=== PATIENT | female | born 1960 | race Hispanic/Latino ===

== ENCOUNTER 2019-09-24 15:58 | Emergency (ER) | payer OTHER ==
[~2019-09-24] VITALS: Ht 152.4 cm; Wt 63.5 kg
--- OUTSIDE RECORDS SUMMARY | 2019-09-24 16:04 | XMS REPORT ---
Author Author [facility] Address Unknown Phone Unavailable Care Team Providers Care Dot Compliance Manager Name Role Phone Unavailable Unavailable Payers Payer Name Policy Type Policy Number Effective Date Expiration Date Problems This patient has no known problems. Allergies, Adverse Reactions, Alerts Allergy Name Allergy Type Status Severity Reaction(s) Onset Date Inactive Date Treating Clinician Comments ibuprofen DA Active U 2019-08-18 00:00:00 vancomycin DA Active SV 2019-08-18 00:00:00 meropenem DA Active MO 2019-08-18 00:00:00 levofloxacin DA Active MO 2019-08-18 00:00:00 shellfish derived FA Active MO 2019-08-18 00:00:00 ibuprofen DA Active SV 2019-01-30 00:00:00 shellfish derived DA Active MO 2019-01-30 00:00:00 ibuprofen DA Active SV 2019-01-29 00:00:00 shellfish derived DA Active SV 2019-01-29 00:00:00 ibuprofen DA Active U 2014-04-22 00:00:00 vancomycin DA Active SV 2014-04-22 00:00:00 meropenem DA Active MO 2014-04-22 00:00:00 levofloxacin DA Active MO 2014-04-22 00:00:00 shellfish derived FA Active MO 2014-04-22 00:00:00 Medications This patient has no known medications. Encounters Start Date/Time End Date/Time Encounter Type Admission Type Attending Clinicians Care Facility Care Department Encounter ID 2019-07-26 11:01:25 Outpatient [facility] [id number] 2019-05-16 14:31:59 Outpatient [facility] [id number] 2019-01-21 12:45:00 2019-01-21 12:45:00 Outpatient [facility] [id number] Results Test Description Test Time Test Comments Text Results Atomic Results Result Comments CBC W/AUTO DIFF 2019-08-19 08:29:00 WHITE BLOOD CELL (test code=WBC) 11.59 x10 3/uL 4.5-11.0 RED BLOOD CELL (test code=RBC) 3.51 x10 6/uL 3.54-5.02 HEMOGLOBIN (test code=HGB) 11.5 g/dL 11.0-15.0 HEMATOCRIT (test code=HCT) 34.5 % 33.0-45.0 MEAN CELL VOLUME (test code=MCV) 98.3 fL 81.0-99.0 MEAN CELL HGB (test code=MCH) 32.8 pg 27.0-33.0 MEAN CELL HGB CONCETRATION (test code=MCHC) 33.3 g/dL 33.0-37.0 RED CELL DISTRIBUTION WIDTH CV (test code=RDW) 12.4 % 11.5-14.5 RED CELL DISTRIBUTION WIDTH SD (test code=RDW-SD) 44.8 fL 37.0-54.0 PLATELET COUNT (test code=PLT) 160 x10 3/uL 150-400 MEAN PLATELET VOLUME (test code=MPV) 11.0 fL 7.0-9.0 NEUTROPHIL % (test code=NT%) 75.7 % 56.0-77.0 IMMATURE GRANULOCYTE % (test code=IG%) 0.5 % 0.0-2.0 LYMPHOCYTE % (test code=LY%) 12.4 % 14.0-32.0 MONOCYTE % (test code=MO%) 11.0 % 4.8-9.0 EOSINOPHIL % (test code=EO%) 0.1 % 0.3-3.7 BASOPHIL % (test code=BA%) 0.3 % 0.0-2.0 NUCLEATED RBC % (test code=NRBC%) 0.0 % 0-0 NEUTROPHIL # (test code=NT#) 8.77 x10 3/uL 2.0-7.6 IMMATURE GRANULOCYTE # (test code=IG#) 0.06 x10 3/uL 0.00-0.03 LYMPHOCYTE # (test code=LY#) 1.44 x10 3/uL 1.0-3.8 MONOCYTE # (test code=MO#) 1.28 x10 3/uL 0.1-0.8 EOSINOPHIL # (test code=EO#) 0.01 x10 3/uL 0.0-0.2 BASOPHIL # (test code=BA#) 0.03 x10 3/uL 0.0-0.2 NUCLEATED RBC # (test code=NRBC#) 0.00 x10 3/uL 0.0-0.1 MANUAL DIFF REQUIRED (test code=MDIFF) NO BASIC METABOLIC [id number] 07:38:00* Test Item Value Reference Range Comments SODIUM (test code=NA) 134 mEq/L 134-147 POTASSIUM (test code=K) 4.6 mEq/L 3.4-5.0 CHLORIDE (test code=CL) 106 mEq/L 100-108 CARBON DIOXIDE (test code=CO2) 21 mEq/L 21-33 ANION GAP (test code=GAP) 12 0-20 GLUCOSE (test code=GLU) 87 mg/dL 70-110 BLOOD UREA NITROGEN (test code=BUN) 12 mg/dL 7-18 GLOMERULAR FILTRATION RATE (test code=GFR) 72.9 80-90 Units of measure=ml/min/1.73 m2 CREATININE (test code=CREAT) 0.8 mg/dL 0.6-1.3 CALCIUM (test code=CA) 7.6 mg/dL 8.0-10.5 PROCALCITONIN (PCT)2019-08-18 14:45:00* Test Item Value Reference Range Comments PROCALCITONIN (PCT) (test code=PROCAL) 0.40 ng/mL 0.00-0.05 PROCALCITONIN (PCT) NORMAL RANGE (ADULT): <0.05 NG/ML. * a concentration <0.5 ng/mL represents a low risk of severe sepsis and/or septic shock.* a concentration >2 ng/mL represents a high risk of severe sepsis and/or septic shock.Nevertheless, concentrations <0.5 ng/mL do not exclude aninfection, on account of localized infections (withoutsystemic signs) which can be associated with such lowconcentrations, or a systemic infection in its initialstages (< 6 hours). Furthermore, increased procalcitonincan occur without infection. PCT concentrations between 0.5and 2.0 ng/mL should be interpreted taking into account thepatient's history. It is recommended to retest PCT within6-24 hours if any concentrations <2 ng/mL are obtained. - XR CHEST 1 [id number] 11:47:00 FAX: Cheri Ojeda DO [place]: St: ADM FAX: Mellissa Story MD [phone] Name: VINI MARIA [facility] : 1960 Age/S: 59/F [address] [place] [address] Unit #: [id number] Loc: [place] [address] Phys: Cheri Ojeda DO Acct: [id number] Dis Date: Status: ADM IN PHONE #: [phone] Exam Date: 08/18/2019 1057 FAX #: [phone] Reason: fever EXAMS: CPT CODE: [id number] XR CHEST 1 V 60252 CHEST, ONE VIEW: HISTORY: Acute fever COMPARISON EXAM(S): January 2019 FINDINGS: This single portable view was obtained at 1028 hours on 08/18/2019 and shows the cardiac silhouette to be normal and the lungs clear. No pleural fluid or evidence of pneumothorax. The skeletal structures are unremarkable. Postoperative clips present in the upper abdomen. IMPRESSION: 1. Negative examination of the chest. 2. No change compared to January 2019. SL:01 at 1147 Reported and signed by: Jhonathan Puckett M.D. CC: Cheri Ojeda DO; Mellissa Story MD Technologist: RT Gallito(R) Trnscrd Date/Time/By: 08/18/2019 (9133) : By: Alfonso Orig Print D/T: S: 08/18/2019 (9407) PAGE 1 Signed Report - CT ABD PELVIS W/CONT 2019-08-18 11:05:00 Name: VINI MARIA : 1960 Age/S: 59 / F [address] [facility] Unit #: [id number] Loc: [place] [address] Phys: Cheri Ojeda DO Acct: [id number] Dis Date: Status: REG ER PHONE #: [phone] Exam Date: 08/18/2019 1044 FAX #: [phone] Reason: fever, right flank pain EXAMS: CPT CODE: [id number] CT ABD PELVIS W/CONT 22496 PROCEDURE: CT ABDOMEN AND PELVIS WITH CONTRAST INDICATION: Right flank pain, fever COMPARISON: None. TECHNIQUE: Helical imaging was performed diaphragm through the symphysis with multiplanar reconstructions. CT imaging performed at this location utilizes radiation dose optimization techniques which include one or more of the following: -Automated exposure control -Adjustment of the mA and/or kV according to patient size -Use of iterative reconstruction technique CT Radiation Dose DLP 214.79 mGy-cm IV CONTRAST: 100 mL Isovue-300. GI CONTRAST: 10 mL Gastrografin diluted in water. FINDINGS: LOWER CHEST: The lung bases are clear. LIVER: Normal. GALLBLADDER: Normal. SPLEEN: Normal. PANCREAS: Normal. ADRENALS: Normal. KIDNEYS: Left kidney is surgically absent. There is mild right hydronephrosis. Small area of decreased density in the mid right kidney is noted. Small area of decreased density within the inferior right kidney is noted. There is enhancement of the right ureteral wall. BOWEL: No bowel dilatation is present. There is moderate stool throughout the colon. APPENDIX: Not visualized PERITONEUM: Ileostomy is noted. No free air or fluid collection is noted. RETROPERITONEUM: No adenopathy. The aorta is normal caliber and PAGE 1 Signed Report (CONTINUED) Name: VINI MARIA [facility] Lurdes Patel : [birth year] Age/S: 59 / F [address] [place] [address] Unit #: [id number] Loc: [place] [address] Phys: Cheri Ojeda DO Acct: [id number] Dis Date: Status: REG ER PHONE #: [phone] Exam Date: 08/18/2019 1044 FAX #: [phone] Reason: fever, right flank pain EXAMS: CPT CODE: [id number] CT ABD PELVIS W/CONT 64360 <Continued> contains calcifications. PELVIS: Urinary bladder is surgically absent. Surgical clips in the pelvic orantes indicate previous lymph node dissection. MUSCULOSKELETAL: The skeleton is intact. Previous posterior decompression at L4-5 is noted. Vertebral body fusion at L2-3 is unchanged. Old vertebral body compression fracture at T12 is unc hanged. IMPRESSION: 1. Small areas of decreased density in mid and inferior right kidney suggestive of mild pyelonephritis. 2. Mild right hydroureteronephrosis, unchanged. 3. Enhancement of right ureteral wall suggestive of urinary tract infection. 4. Nonvisualization of appendix. 5. Previous resection of urinary bladder with ileostomy. 6. Absent left kidney. SL: [id number] G06 at 1105 R eported and signed by: Myles Hopkins M.D. CC: Cheri Story MD Technologist:Kim Montoya RT(R)(CT) CTDI: DLP: Trnscb Date/Time: 08/18/2019 (0835) [email or web address] Orig Print D/T: S: 08/18/2019 (1166) PAGE 2 Signed Report HEPATIC FUNCTION PANEL 2019-08-18 10:34:00* Test Item Value Reference Range Comments TOTAL PROTEIN (test code=PROT) 8.1 g/dL 6.4-8.2 ALBUMIN (test code=ALB) 4.00 g/dL 3.4-5.0 BILIRUBIN TOTAL (test code=BILT) 1.4 MG/DL <1.5 BILIRUBIN DIRECT (test code=BILD) 0.30 MG/DL 0.0-0.30 BILIRUBIN INDIRECT (test code=BILIND) 1.10 MG/DL SGOT/AST (test code=AST) 30 IUnit/L 15-37 SGPT/ALT (test code=ALT) 47 IUnit/L 15-65 ALKALINE PHOSPHATASE TOTAL (test code=ALKP) 69 IUnit/L 20-125 PROTHROMBIN [id number] 10:34:00* Test Item Value Reference Range Comments PROTHROMBIN TIME PATIENT (test code=PTP) 12.9 SECONDS 9.3-12.9 INTERNATIONAL NORMAL RATIO (test code=INR) 1.2 0.8-1.2 TARGET INR BY INDICATION Indication INR1. Prophylaxis of venous thrombosis 2.0 - 3.0 (orthopedic surgery), Prophylaxis of venous thrombosis (other than high-risk surgery), Treatment of Deep Vein Thrombosis/Pulmonary Embolism, Prevention of systemic embolism - Tissue heart valves, Acute Myocardial Infarction (to prevent systemic embolism), Valvular heart disease, Atrial Fibrillation, Bileaflet mechanical valve in aortic position.2. Mechanical prosthetic valves (high risk), 2.5 - 3.5 Presence of Lupus Anticoagulant or Antiphospholipid Antibodies, Prevention of systemic embolism - Acute Myocardial Infarction (to prevent recurrent infarct). THROMBOPLASTIN TIME [id number] 10:34:00* Test Item Value Reference Range Comments THROMBOPLASTIN TIME PARTIAL (test code=PTT) 48.9 Seconds 25.0-39.5 Therapeutic Range: 50.4 - 88.3 Seconds Effective 02/12/2019 UA RFLX MICR CULT IF [id number] 10:32:00* Test Item Value Reference Range Comments UA COLOR (test code=COLU) YELLOW YEL/STRAW UA APPEARANCE (test code=APPU) CLOUDY CLEAR UA GLUCOSE DIPSTICK (test code=DGLUU) NEGATIVE NEGATIVE UA BILIRUBIN DIPSTICK (test code=BILU) NEGATIVE NEGATIVE UA KETONE DIPSTICK (test code=KETU) 1+ NEGATIVE UA SPECIFIC GRAVITY (test code=SGU) 1.009 1.005-1.030 UA BLOOD DIPSTICK (test code=CARLI) 2+ NEGATIVE UA PH DIPSTICK (test code=JAG) 5.0 5.0-7.0 UA PROTEIN DIPSTICK (test code=PROU) NEGATIVE NEGATIVE UA UROBILINIOGEN DIPSTICK (test code=URO) 0.2 mg/dL 0.2-1.0 UA NITRITE DIPSTICK (test code=JESUS) POSITIVE NEGATIVE UA LEUKOCYTE ESTERASE DIPSTICK (test code=LEUU) 3+ NEGATIVE UA WBC (test code=WBCU) >50 WBC/HPF 0-3 UA RBC (test code=RBCU) 11-20 RBC/HPF 0-3 UA WBC NO REFLEX (test code=WBCUCL) >50 WBC/HPF 0-3 UA BACTERIA (test code=BACU) 4+ /HPF NONE SEEN UA SQUAMOUS CELLS (test code=SQU) NONE SEEN /HPF NONE SEEN UA MUCUS (test code=MUCU) TRACE /LPF NONE SEEN Indication for culture: Sev. Sepsis-no other srcSpecimen Description: STOMA HEPATIC FUNCTION [id number] 10:31:00* Test Item Value Reference Range Comments TOTAL PROTEIN (test code=PROT) 8.1 g/dL 6.4-8.2 ALBUMIN (test code=ALB) 4.00 g/dL 3.4-5.0 BILIRUBIN TOTAL (test code=BILT) MG/DL <1.5 BILIRUBIN DIRECT (test code=BILD) 0.30 MG/DL 0.0-0.30 SGOT/AST (test code=AST) 30 IUnit/L 15-37 SGPT/ALT (test code=ALT) 47 IUnit/L 15-65 ALKALINE PHOSPHATASE TOTAL (test code=ALKP) IUnit/L 20-125 CBC W/AUTO [id number] 10:20:00* Test Item Value Reference Range Comments WHITE BLOOD CELL (test code=WBC) 11.94 x10 3/uL 4.5-11.0 RED BLOOD CELL (test code=RBC) 4.11 x10 6/uL 3.54-5.02 HEMOGLOBIN (test code=HGB) 13.6 g/dL 11.0-15.0 HEMATOCRIT (test code=HCT) 40.1 % 33.0-45.0 MEAN CELL VOLUME (test code=MCV) 97.6 fL 81.0-99.0 MEAN CELL HGB (test code=MCH) 33.1 pg 27.0-33.0 MEAN CELL HGB CONCETRATION (test code=MCHC) 33.9 g/dL 33.0-37.0 RED CELL DISTRIBUTION WIDTH CV (test code=RDW) 12.3 % 11.5-14.5 RED CELL DISTRIBUTION WIDTH SD (test code=RDW-SD) 44.2 fL 37.0-54.0 PLATELET COUNT (test code=PLT) 186 x10 3/uL 150-400 MEAN PLATELET VOLUME (test code=MPV) 10.2 fL 7.0-9.0 NEUTROPHIL % (test code=NT%) 85.7 % 56.0-77.0 IMMATURE GRANULOCYTE % (test code=IG%) 0.5 % 0.0-2.0 LYMPHOCYTE % (test code=LY%) 6.1 % 14.0-32.0 MONOCYTE % (test code=MO%) 6.9 % 4.8-9.0 EOSINOPHIL % (test code=EO%) 0.3 % 0.3-3.7 BASOPHIL % (test code=BA%) 0.5 % 0.0-2.0 NUCLEATED RBC % (test code=NRBC%) 0.0 % 0-0 NEUTROPHIL # (test code=NT#) 10.24 x10 3/uL 2.0-7.6 IMMATURE GRANULOCYTE # (test code=IG#) 0.06 x10 3/uL 0.00-0.03 LYMPHOCYTE # (test code=LY#) 0.73 x10 3/uL 1.0-3.8 MONOCYTE # (test code=MO#) 0.82 x10 3/uL 0.1-0.8 EOSINOPHIL # (test code=EO#) 0.03 x10 3/uL 0.0-0.2 BASOPHIL # (test code=BA#) 0.06 x10 3/uL 0.0-0.2 NUCLEATED RBC # (test code=NRBC#) 0.00 x10 3/uL 0.0-0.1 MANUAL DIFF REQUIRED (test code=MDIFF) NO TROPONIN-I [id number] 10:18:00* Test Item Value Reference Range Comments TROPONIN-I RAPID (test code=TROPIRAP) 0.06 ng/mL 0.00-0.08 Performed by certified dicer machine operator at [facility] Negative: <=0.08 Positive: >=0.09An elevated troponin value alone is not sufficient todiagnose a myocardial infarction. Rather, the patient sclinical presentation (history, physical exam) and ECGshould be used in conjunction with troponin in thediagnostic evaluation of suspected myocardial infarction. Aserial sampling protocol is recommended to facilitate the identification of temporal changes in troponin levels characteristic of HI. CHEMISTRY 8 [id number] 10:05:00* Test Item Value Reference Range Comments ISTAT-SODIUM (test code=NAP) MMOL/L 134-147 ISTAT-POTASSIUM (test code=KP) MMOL/L 3.4-5.0 ISTAT-CHLORIDE (test code=CLP) MMOL/L 100-108 ISTAT CARBON DIOXIDE (test code=ISTAT-CO2) mmol/L 21-33 ISTAT CALCIUM IONIZED (test code=ISTAT-MICHAEL) MG/DL 1.12-1.32 ISTAT-GLUCOSE (test code=GLUP) MG/DL 70-110 ISTAT-BUN (test code=BUNP) MG/DL 7-18 BEDSIDE CREATININE (test code=CREATBED) MG/DL 0.6-1.3 GLOMERULAR FILTRATION RATE POC (test code=GFRBED) 60 ML/MIN CHEMISTRY 8 [id number] 10:05:00* Test Item Value Reference Range Comments ISTAT-SODIUM (test code=NAP) 135 MMOL/L 134-147 ISTAT-POTASSIUM (test code=KP) 4.2 MMOL/L 3.4-5.0 ISTAT-CHLORIDE (test code=CLP) 99 MMOL/L 100-108 Performed by certified dicer machine operator at [facility] ISTAT CARBON DIOXIDE (test code=ISTAT-CO2) 23.0 mmol/L 21-33 ISTAT CALCIUM IONIZED (test code=ISTAT-MICHAEL) 1.14 MG/DL 1.12-1.32 ISTAT-GLUCOSE (test code=GLUP) 92 MG/DL 70-110 ISTAT-BUN (test code=BUNP) 16 MG/DL 7-18 BEDSIDE CREATININE (test code=CREATBED) 1.0 MG/DL 0.6-1.3 GLOMERULAR FILTRATION RATE POC (test code=GFRBED) 60 ML/MIN LACTIC ACID [id number] 10:05:00* Test Item Value Reference Range Comments LACTIC ACID POC (test code=LACTP) 0.7 MMOL/L 0.90-1.70 Performed by certified dicer machine operator at [facility] CBC W/AUTO [id number] 08:08:00* Test Item Value Reference Range Comments WHITE BLOOD CELL (test code=WBC) 4.47 x10 3/uL 4.5-11.0 RED BLOOD CELL (test code=RBC) 3.93 x10 6/uL 3.54-5.02 HEMOGLOBIN (test code=HGB) 12.7 g/dL 11.0-15.0 HEMATOCRIT (test code=HCT) 36.9 % 33.0-45.0 MEAN CELL VOLUME (test code=MCV) 93.9 fL 81.0-99.0 MEAN CELL HGB (test code=MCH) 32.3 pg 27.0-33.0 MEAN CELL HGB CONCETRATION (test code=MCHC) 34.4 g/dL 33.0-37.0 RED CELL DISTRIBUTION WIDTH CV (test code=RDW) 11.9 % 11.5-14.5 RED CELL DISTRIBUTION WIDTH SD (test code=RDW-SD) 41.2 fL 37.0-54.0 PLATELET COUNT (test code=PLT) 175 x10 3/uL 150-400 MEAN PLATELET VOLUME (test code=MPV) 10.2 fL 7.0-9.0 NEUTROPHIL % (test code=NT%) 54.9 % 56.0-77.0 IMMATURE GRANULOCYTE % (test code=IG%) 0.2 % 0.0-2.0 LYMPHOCYTE % (test code=LY%) 27.7 % 14.0-32.0 MONOCYTE % (test code=MO%) 9.6 % 4.8-9.0 EOSINOPHIL % (test code=EO%) 6.5 % 0.3-3.7 BASOPHIL % (test code=BA%) 1.1 % 0.0-2.0 NUCLEATED RBC % (test code=NRBC%) 0.0 % 0-0 NEUTROPHIL # (test code=NT#) 2.45 x10 3/uL 2.0-7.6 IMMATURE GRANULOCYTE # (test code=IG#) 0.01 x10 3/uL 0.00-0.03 LYMPHOCYTE # (test code=LY#) 1.24 x10 3/uL 1.0-3.8 MONOCYTE # (test code=MO#) 0.43 x10 3/uL 0.1-0.8 EOSINOPHIL # (test code=EO#) 0.29 x10 3/uL 0.0-0.2 BASOPHIL # (test code=BA#) 0.05 x10 3/uL 0.0-0.2 NUCLEATED RBC # (test code=NRBC#) 0.00 x10 3/uL 0.0-0.1 MANUAL DIFF REQUIRED (test code=MDIFF) NO BASIC METABOLIC [id number] 08:05:00* Test Item Value Reference Range Comments SODIUM (test code=NA) 141 mEq/L 134-147 POTASSIUM (test code=K) 3.9 mEq/L 3.4-5.0 CHLORIDE (test code=CL) 110 mEq/L 100-108 CARBON DIOXIDE (test code=CO2) 23 mEq/L 21-33 ANION GAP (test code=GAP) 12 0-20 GLUCOSE (test code=GLU) 98 mg/dL 70-110 BLOOD UREA NITROGEN (test code=BUN) 12 mg/dL 7-18 GLOMERULAR FILTRATION RATE (test code=GFR) 73.2 80-90 Units of measure=ml/min/1.73 m2 CREATININE (test code=CREAT) 0.8 mg/dL 0.6-1.3 CALCIUM (test code=CA) 8.4 mg/dL 8.0-10.5 BASIC METABOLIC [id number] 08:18:00* Test Item Value Reference Range Comments SODIUM (test code=NA) 141 mEq/L 134-147 POTASSIUM (test code=K) 3.8 mEq/L 3.4-5.0 CHLORIDE (test code=CL) 110 mEq/L 100-108 CARBON DIOXIDE (test code=CO2) 25 mEq/L 21-33 ANION GAP (test code=GAP) 10 0-20 GLUCOSE (test code=GLU) 82 mg/dL 70-110 BLOOD UREA NITROGEN (test code=BUN) 7 mg/dL 7-18 GLOMERULAR FILTRATION RATE (test code=GFR) 73.2 80-90 Units of measure=ml/min/1.73 m2 CREATININE (test code=CREAT) 0.8 mg/dL 0.6-1.3 CALCIUM (test code=CA) 8.3 mg/dL 8.0-10.5 CBC W/AUTO [id number] 08:01:00* Test Item Value Reference Range Comments WHITE BLOOD CELL (test code=WBC) 3.96 x10 3/uL 4.5-11.0 RED BLOOD CELL (test code=RBC) 4.19 x10 6/uL 3.54-5.02 HEMOGLOBIN (test code=HGB) 13.4 g/dL 11.0-15.0 HEMATOCRIT (test code=HCT) 39.6 % 33.0-45.0 MEAN CELL VOLUME (test code=MCV) 94.5 fL 81.0-99.0 MEAN CELL HGB (test code=MCH) 32.0 pg 27.0-33.0 MEAN CELL HGB CONCETRATION (test code=MCHC) 33.8 g/dL 33.0-37.0 RED CELL DISTRIBUTION WIDTH CV (test code=RDW) 12.0 % 11.5-14.5 RED CELL DISTRIBUTION WIDTH SD (test code=RDW-SD) 42.0 fL 37.0-54.0 PLATELET COUNT (test code=PLT) 189 x10 3/uL 150-400 MEAN PLATELET VOLUME (test code=MPV) 10.6 fL 7.0-9.0 NEUTROPHIL % (test code=NT%) 39.9 % 56.0-77.0 IMMATURE GRANULOCYTE % (test code=IG%) 0.3 % 0.0-2.0 LYMPHOCYTE % (test code=LY%) 44.2 % 14.0-32.0 MONOCYTE % (test code=MO%) 8.8 % 4.8-9.0 EOSINOPHIL % (test code=EO%) 5.8 % 0.3-3.7 BASOPHIL % (test code=BA%) 1.0 % 0.0-2.0 NUCLEATED RBC % (test code=NRBC%) 0.0 % 0-0 NEUTROPHIL # (test code=NT#) 1.58 x10 3/uL 2.0-7.6 IMMATURE GRANULOCYTE # (test code=IG#) 0.01 x10 3/uL 0.00-0.03 LYMPHOCYTE # (test code=LY#) 1.75 x10 3/uL 1.0-3.8 MONOCYTE # (test code=MO#) 0.35 x10 3/uL 0.1-0.8 EOSINOPHIL # (test code=EO#) 0.23 x10 3/uL 0.0-0.2 BASOPHIL # (test code=BA#) 0.04 x10 3/uL 0.0-0.2 NUCLEATED RBC # (test code=NRBC#) 0.00 x10 3/uL 0.0-0.1 MANUAL DIFF REQUIRED (test code=MDIFF) NO CBC W/AUTO [id number] 08:01:00* Test Item Value Reference Range Comments WHITE BLOOD CELL (test code=WBC) 4.38 x10 3/uL 4.5-11.0 RED BLOOD CELL (test code=RBC) 4.21 x10 6/uL 3.54-5.02 HEMOGLOBIN (test code=HGB) 13.7 g/dL 11.0-15.0 HEMATOCRIT (test code=HCT) 40.0 % 33.0-45.0 MEAN CELL VOLUME (test code=MCV) 95.0 fL 81.0-99.0 MEAN CELL HGB (test code=MCH) 32.5 pg 27.0-33.0 MEAN CELL HGB CONCETRATION (test code=MCHC) 34.3 g/dL 33.0-37.0 RED CELL DISTRIBUTION WIDTH CV (test code=RDW) 12.1 % 11.5-14.5 RED CELL DISTRIBUTION WIDTH SD (test code=RDW-SD) 42.5 fL 37.0-54.0 PLATELET COUNT (test code=PLT) 184 x10 3/uL 150-400 MEAN PLATELET VOLUME (test code=MPV) 10.5 fL 7.0-9.0 NEUTROPHIL % (test code=NT%) 43.9 % 56.0-77.0 IMMATURE GRANULOCYTE % (test code=IG%) 0.2 % 0.0-2.0 LYMPHOCYTE % (test code=LY%) 39.7 % 14.0-32.0 MONOCYTE % (test code=MO%) 9.4 % 4.8-9.0 EOSINOPHIL % (test code=EO%) 5.7 % 0.3-3.7 BASOPHIL % (test code=BA%) 1.1 % 0.0-2.0 NUCLEATED RBC % (test code=NRBC%) 0.0 % 0-0 NEUTROPHIL # (test code=NT#) 1.92 x10 3/uL 2.0-7.6 IMMATURE GRANULOCYTE # (test code=IG#) 0.01 x10 3/uL 0.00-0.03 LYMPHOCYTE # (test code=LY#) 1.74 x10 3/uL 1.0-3.8 MONOCYTE # (test code=MO#) 0.41 x10 3/uL 0.1-0.8 EOSINOPHIL # (test code=EO#) 0.25 x10 3/uL 0.0-0.2 BASOPHIL # (test code=BA#) 0.05 x10 3/uL 0.0-0.2 NUCLEATED RBC # (test code=NRBC#) 0.00 x10 3/uL 0.0-0.1 MANUAL DIFF REQUIRED (test code=MDIFF) NO BASIC METABOLIC [id number] 07:27:00* Test Item Value Reference Range Comments SODIUM (test code=NA) 139 mEq/L 134-147 POTASSIUM (test code=K) 3.2 mEq/L 3.4-5.0 CHLORIDE (test code=CL) 104 mEq/L 100-108 CARBON DIOXIDE (test code=CO2) 28 mEq/L 21-33 ANION GAP (test code=GAP) 10 0-20 GLUCOSE (test code=GLU) 90 mg/dL 70-110 BLOOD UREA NITROGEN (test code=BUN) 10 mg/dL 7-18 GLOMERULAR FILTRATION RATE (test code=GFR) 56.6 80-90 Units of measure=ml/min/1.73 m2 CREATININE (test code=CREAT) 1.0 mg/dL 0.6-1.3 CALCIUM (test code=CA) 8.1 mg/dL 8.0-10.5 - NM RENAL FUNCT W/PHA [id number] 17:00:00 FAX: Vincent Carbajal MD [phone] [place]: St: DIS FAX: Black Vidal MD FAX: Mellissa Story MD [phone] Name: MARIAVINI RODRIGUEZ [facility] : 1960 Age/S: 58/F [address] [place] [address] Unit #: [id number] Loc: G.4418 [place] [address] Phys: Vincent Gilliam MD Acct: [id number] Dis Date: [id number] Status: DIS IN PH ONE #: [phone] Exam Date: 03/28/2019 1509 FAX #: [phone] Reason: HYDRO OF SOLITARY KIDNEY. CALCULATE POST LASIX EXAMS: CPT CODE: [id number] NM RENAL FUNCT W/[place] SGL [id number] NUCLEAR MAG3 R ENAL SCAN WITH LASIX: HISTORY: Hydronephrosis of solitary kidney. Cystectomy and left nephrectomy in 2013. Ureteral conduit in 2013. COMPARISON EXAM: Abdominal pelvic CT scan of 03/27/2019. T ECHNIQUE: Following the intravenous injection of 10 mCi 99m technetium MAG 3, immediate vascular flow imaging was performed in posterior projection o kevin the kidneys. Sequential images were obtained during localization and excretion phases. Following the intravenous injection of 40 mg IV Lasix, posterior images were obtained for an additional 20 minutes. Renogram cur ves were generated. FINDINGS: There was prompt initial local ization of isotope to the right renal parenchyma at the time of early pepito rial phase imaging. There was normal localization of isotope to the right renal parenchyma and pooling of isotope in moderately distended right romina al calyces and right renal pelvis out to 30 minutes. After i ntravenous Lasix, there was prompt washout of isotope activity from the ri ght kidney. Estimated total ERPF is 324 mL/m. Time to peak cortical acti vity is 3.1 minutes (normal less than 4 minutes). Diuretic T1/2=8.5 minut es. IMPRESSION: 1. Normal vascular flow and localizatio n phases of the right kidney. 2. High capacity collecting structures wi thout evidence of complete obstruction. 3. Diuretic T1/2=8.5 mi nutes. 4. Total estimated ERPF is 324 mL/m. SL:01 PAGE 1 Sign ed Report (CONTINUED) FAX: Vincent Carbajal MD [place]: St: DIS FAX: Black Vidal MD FAX: Mellissa Story MD [phone] Name: VINI MARIA [facility] : 1960 Age/S: 58/F [address] [facility] Unit #: [id number] Loc: [address] [place] [address] Phys: Vincent Gilliam MD Acct: [id number] Dis Date: [id number] Status: DIS IN PHONE #: [phone] Exam Date: 03/28/2019 1509 FAX #: [phone] Reason: HYDRO OF S OLITARY KIDNEY. CALCULATE POST LASIX EXAMS: CPT CODE: [id number] NM RENAL FUNCT W/PHA SGL [id number] <Continued> at 1700 Reported and signed by: Jhonathan Puckett M.D. CC: Vincent Gilliam MD; Black Vidal MD; Mellissa Story MD Technologist: GELY Vargas (N); ... Trnderd Date/Time/By: 03/28/2019 (1700) : By: [facility] Orig Print D/T: S: 03/28/2019 (6594) PAGE 2 Signed Report - NM RENAL FUNCT W/PHA [id number] 17:00:00 FAX: Vincent Carbajal MD [phone] [place]: St: [facility] FAX: Black Vidal MD FAX: Mellissa Story MD [phone] Name: VINI MARIA [facility] [place] : 1960 Age/S: 58/F [address] [place] [address] Unit #: [id number] Loc: [place] [address] Phys: Vincent Gilliam MD Acct: [id number] Dis Date: Status: ADM IN PH ONE #: [phone] Exam Date: 03/28/2019 1509 FAX #: [phone] Reason: HYDRO OF SOLITARY KIDNEY. CALCULATE POST LASIX EXAMS: CPT CODE: [id number] NM RENAL FUNCT W/PHA SGL 27109 NUCLEAR MAG3 R ENAL SCAN WITH LASIX: HISTORY: Hydronephrosis of solitary kidney. Cystectomy and left nephrectomy in 2012. Ureteral conduit in 2012. COMPARISON EXAM: Abdominal pelvic CT scan of 03/27/2019. T ECHNIQUE: Following the intravenous injection of 10 mCi 99m technetium MAG 3, immediate vascular flow imaging was performed in posterior projection o kevin the kidneys. Sequential images were obtained during localization and excretion phases. Following the intravenous injection of 40 mg IV Lasix, posterior images were obtained for an additional 20 minutes. Renogram cur ves were generated. FINDINGS: There was prompt initial local ization of isotope to the right renal parenchyma at the time of early pepito rial phase imaging. There was normal localization of isotope to the right renal parenchyma and pooling of isotope in moderately distended right romina al calyces and right renal pelvis out to 30 minutes. After i ntravenous Lasix, there was prompt washout of isotope activity from the ri ght kidney. Estimated total ERPF is 324 mL/m. Time to peak cortical acti vity is 3.1 minutes (normal less than 4 minutes). Diuretic T1/2=8.5 minut es. IMPRESSION: 1. Normal vascular flow and localizatio n phases of the right kidney. 2. High capacity collecting structures wi thout evidence of complete obstruction. 3. Diuretic T1/2=8.5 mi nutes. 4. Total estimated ERPF is 324 mL/m. SL:01 PAGE 1 Sign ed Report (CONTINUED) FAX: Vincent Carbajal MD [place]: St: ADM FAX: Black Vidal MD FAX: Mellissa Story MD [phone] Name: VINI MARIA [facility] [place] : 1960 Age/S: 58/F [address] [place] [address] Unit #: [id number] Loc: [address] [place] [address] Phys: Vincent Gilliam MD Acct: [id number] Dis Date: Status: ADM IN PHONE #: [phone] Exam Date: 03/28/2019 1509 FAX #: [phone] Reason: HYDRO OF S OLITARY KIDNEY. CALCULATE POST LASIX EXAMS: CPT CODE: [id number] NM RENAL FUNCT W/PHA SGL 93290 <Continued> at 1700 Reported and signed by: Jhonathan Puckett M.D. CC: Vincent Gilliam MD; Black Vidal MD; Mellissa Story MD Technologist: GELY Vargas (N); ... Trnscrd Date/Time/By: 03/28/2019 (1700) : By: [facility] Orig Print D/T: S: 03/28/2019 (6020) PAGE 2 Signed Report - XR ABDOMEN 1V (KUB)2019-03-28 11:19:00 FAX: Taylor Manuel MD [phone] [place]: St: DIS FAX: Black Vidal MD FAX: Mellissa Story MD [phone] Name: VINI MARIA [facility] [place] : 1960 Age/S: 58/F [address] [place] [address] Unit #: [id number] Loc: [address] [place] [address] Phys: Taylor Harrell MD Acct: [id number] Dis Date: [id number] Status: DIS IN PH ONE #: [phone] Exam Date: 03/28/2019 1054 FAX #: [phone] Reason: FOLLOW UP OF sbo EXAMS: CPT CODE: [id number] XR ABDOMEN 1V (KUB) 00336 CLINICAL HISTO RY: Follow-up SBO. COMPARISON: March 27, 2019 at 1813. Fine film of the abdomen does not include diaphragms. Monitor leads are present. Surgical clips related to previous abdominal surgery are noted. Contrast material is seen in the colon from prior computed tomography. No evidence of small or large bowel obstruction is seen. Changes of prior laminectomy are present. IMPRESSION: No evidence of small bowel obstruction with contrast material seen in the colon from prior computed tomography. at 1119 Reported and signed by: Benji Anderson M.D. CC: Taylor Harrell MD; Black Vidal MD; Mellissa Story MD Technologist: RT Сергей(R) Trnscrd Akira e/Time/By: 03/28/2019 (1822) : By: Alvin Orig Print D/T: S: 2018 (0482) PAGE 1 Signed Report - XR ABDOMEN 1V (KUB)2019-03-28 11:19:00 FAX: Taylor Manuel MD [phone] [place]: St: ADM FAX: Black Vidal MD FAX: Mellissa Story MD --------- Name: VINI MARIA [facility] : 1960 Age/S: 58/F [address] [place] [address] it #: [id number] Loc: G.4418 [place] [address] Phys: Taylor Harrell MD Acct: [id number] Dis Date: Status: ADM IN PH ONE #: [phone] Exam Date: 03/28/2019 1054 FAX #: [phone] Reason: FOLLOW UP OF sbo EXAMS: CPT CODE: [id number] XR ABDOMEN 1V (KUB) 78544 CLINICAL HISTO RY: Follow-up SBO. COMPARISON: March 27, 2019 at 1813. Fine film of the abdomen does not include diaphragms. Monitor leads are present. Surgical clips related to previous abdominal surgery are noted. Contrast material is seen in the colon from prior computed tomography. No evidence of small or large bowel obstruction is seen. Changes of prior laminectomy are present. IMPRESSION: No evidence of small bowel obstruction with contrast material seen in the colon from prior computed tomography. at 1119 Reported and signed by: Benji Anderson M.D. CC: Taylor Harrell MD; Black Vidal MD; Mellissa Story MD Technologist: Rosa Maria YepezRT(R) Trnscrd Akira e/Time/By: 03/28/2019 (6737) : By: Alvin Orig Print D/T: S: 2018 (4033) PAGE 1 Signed Report CBC W/AUTO [id number] 09:38:00* Test Item Value Reference Range Comments WHITE BLOOD CELL (test code=WBC) 5.37 x10 3/uL 4.5-11.0 RED BLOOD CELL (test code=RBC) 3.89 x10 6/uL 3.54-5.02 HEMOGLOBIN (test code=HGB) 12.8 g/dL 11.0-15.0 HEMATOCRIT (test code=HCT) 37.9 % 33.0-45.0 MEAN CELL VOLUME (test code=MCV) 97.4 fL 81.0-99.0 MEAN CELL HGB (test code=MCH) 32.9 pg 27.0-33.0 MEAN CELL HGB CONCETRATION (test code=MCHC) 33.8 g/dL 33.0-37.0 RED CELL DISTRIBUTION WIDTH CV (test code=RDW) 12.6 % 11.5-14.5 RED CELL DISTRIBUTION WIDTH SD (test code=RDW-SD) 45.4 fL 37.0-54.0 PLATELET COUNT (test code=PLT) 170 x10 3/uL 150-400 MEAN PLATELET VOLUME (test code=MPV) 10.9 fL 7.0-9.0 NEUTROPHIL % (test code=NT%) 55.6 % 56.0-77.0 IMMATURE GRANULOCYTE % (test code=IG%) 0.2 % 0.0-2.0 LYMPHOCYTE % (test code=LY%) 29.1 % 14.0-32.0 MONOCYTE % (test code=MO%) 10.1 % 4.8-9.0 EOSINOPHIL % (test code=EO%) 4.1 % 0.3-3.7 BASOPHIL % (test code=BA%) 0.9 % 0.0-2.0 NUCLEATED RBC % (test code=NRBC%) 0.0 % 0-0 NEUTROPHIL # (test code=NT#) 2.99 x10 3/uL 2.0-7.6 IMMATURE GRANULOCYTE # (test code=IG#) 0.01 x10 3/uL 0.00-0.03 LYMPHOCYTE # (test code=LY#) 1.56 x10 3/uL 1.0-3.8 MONOCYTE # (test code=MO#) 0.54 x10 3/uL 0.1-0.8 EOSINOPHIL # (test code=EO#) 0.22 x10 3/uL 0.0-0.2 BASOPHIL # (test code=BA#) 0.05 x10 3/uL 0.0-0.2 NUCLEATED RBC # (test code=NRBC#) 0.00 x10 3/uL 0.0-0.1 MANUAL DIFF REQUIRED (test code=MDIFF) NO BASIC METABOLIC [id number] 08:14:00* Test Item Value Reference Range Comments SODIUM (test code=NA) 143 mEq/L 134-147 POTASSIUM (test code=K) 3.5 mEq/L 3.4-5.0 CHLORIDE (test code=CL) 112 mEq/L 100-108 CARBON DIOXIDE (test code=CO2) 23 mEq/L 21-33 ANION GAP (test code=GAP) 12 0-20 GLUCOSE (test code=GLU) 92 mg/dL 70-110 BLOOD UREA NITROGEN (test code=BUN) 11 mg/dL 7-18 GLOMERULAR FILTRATION RATE (test code=GFR) 56.6 80-90 Units of measure=ml/min/1.73 m2 CREATININE (test code=CREAT) 1.0 mg/dL 0.6-1.3 CALCIUM (test code=CA) 8.0 mg/dL 8.0-10.5 - XR ABDOMEN [id number] 00:28:00 FAX: Black Vidal MD [place]: St: DIS FAX: Mellissa Story MD [phone] FAX: Sudhir Dominguez MD [phone] Name: VINI MARIA [facility] : 1960 Age/S: 58/F [address] [place] [address] Unit #: [id number] Loc: G.[address] [place] [address] Phys: Sudhir Anderson MD Acct: [id number] Dis Date: [id number] Status: DIS IN ONE #: [phone] Exam Date: 03/27/20191821 FAX #: [phone] Reason: follow-up sbo EXAMS: CPT CODE: [id number] XR ABDOMEN 2V 71862 Abdomen, 2 vie ws dated 02/25/2019. HISTORY: Small bowel obstruction. AP supine and erect images of the abdomen are correlated with the CT of the abdomen dated 03/27/2019. The images demonstrate the presence of persi stent oral contrast within several mildly dilated loops of small bowel in the pelvis, compatible with the CT finding. The bowel gas pattern is othe rwise unremarkable. There is no evidence organomegaly or free intraperito marcela air. Vicariously excreted contrast is identified in the gallbladder. There is no evidence of persistent excreted contrast within the dilated right renal collecting system. Numerous surgical clips are identified in the left paraspinal region and in the pelvis. The lung bases appear clear . IMPRESSION: 1. Persistent oral contrast within severa l mildly dilated loops of small bowel in the right pelvis, compatible wi th the CT finding of small bowel obstruction. 2. No evidence of persistent excreted contrast within the dilated right renal collecting system. SL: 131 at 0028 Reported and signed by: Morris Guo M.D. CC: Black Vidal MD; Mlelissa Story MD; Sudhir Anderson MD chnologist: RT Albina(R) Trnscrd Date/ Time/By: 03/28/2019 (002) : By: LilyM Orig Print D/T: S: 03/28/20 (0039) PAGE 1 Signed Report - XR ABDOMEN [id number] 00:28:00 FAX: Black Vidal MD [place]: St: ADM FAX: Mellisas Story MD [phone] FAX: Sudhir Dominguez MD --------- Name: VINI MARIA [facility] [place] : 1960 Age/S: 58/F [address] [place] [address] it #: [id number] Loc: G.[address] [place] [address] Phys: Sudhir Anderson MD Acct: [id number] Dis Date: Status: ADM IN ONE #: [phone] Exam Date: 03/27/2019 182 FAX #: [phone] Reason: follow-up sbo EXAMS: CPT CODE: [id number] XR ABDOMEN 2V 92341 Abdomen, 2 vie ws dated 02/25/2019. HISTORY: Small bowel obstruction. AP supine and erect images of the abdomen are correlated with the CT of the abdomen dated 03/27/2019. The images demonstrate the presence of persi stent oral contrast within several mildly dilated loops of small bowel in the pelvis, compatible with the CT finding. The bowel gas pattern is othe rwise unremarkable. There is no evidence organomegaly or free intraperito marcela air. Vicariously excreted contrast is identified in the gallbladder. There is no evidence of persistent excreted contrast within the dilated right renal collecting system. Numerous surgical clips are identified in the left paraspinal region and in the pelvis. The lung bases appear clear . IMPRESSION: 1. Persistent oral contrast within severa l mildly dilated loops of small bowel in the right pelvis, compatible wi th the CT finding of small bowel obstruction. 2. No evidence of persistent excreted contrast within the dilated right renal collecting system. SL: 131 at 0028 Reported and signed by: Morris Guo M.D. CC: Black Vidal MD; Mellissa Story MD; Sudhir Anderson MD Te chnologist: RT Albina(Chata) Trnscrd Date/ Time/By: 03/28/2019 (0028) : By: Darin Orig Print D/T: S: 03/28/20 19 (0031) PAGE 1 Signed Report [id number] 16:46:00* Test Item Value Reference Range Comments GLUBED (test code=GLUBED) 95 MG/DL 70-110 Performed by certified dicer machine operator at [facility] ABD PELVIS [id number] 03:48:00 Name: VINI MARIA [facility] : 1960 Age/S: 58 / F [address] [place], [place] [address]vd Unit #: [id number] Loc: [place] [address] Phys: Jeanine Pepe COMMUNITY SUPPORT ASSOCIATE Acct: [id number] Dis Date: 03/31/2019 Status: DIS IN PHONE #: [phone] Exam Date: 03/27/2019 0309 FAX #: [phone] Reason: diffuse abd pain with n/v; hx SBO EXAMS: CPT CODE: [id number] CT ABD PELVIS W/CONT 00134 PROCEDURE: CT abdomen and pelvis with contrast dated 03/27/2019. INDICATION: Generalized abdominal pain. Nausea and vomiting. Prior history of small bowel obstruction. COMPARISON: CT abdomen dated 01/29/2019. TECHNIQUE: A CT of the abdomen pelvis was performed using helical images from the thoracic outlet through the pubic symphysis with subsequent sagittal and coronal reconstruction. IV CONTRAST: 100 cc of Isovue-300 GI CONTRAST: 500 mL of dilute Omnipaque [address] imaging performed at this location utilizes radiation dose optimization techniques which include one or more of the followin) Automated exposure control; 2) Adjustment of mA and/or kV; 3) Use of iterative reconstructive technique. CT radiation dose DLP (mGy- cm): 340. FINDINGS: SOLID ORGANS: The patient is status post left nephrectomy. The lobulated low-density collection in the left para-aortic retroperitoneum at the level of the surgical clips appears stable and may represent a postoperative hematoma, seroma or lymphocele. Right hydronephrosis/hydroureter is identified with the ureter being dilated to the level of the urinary diversion. The degree of right renal collecting system dilatation appears to have increased when compared to the preceding CT. No calcified renal or ureteral stones are detected. No CT abnormalities of the liver, spleen, pancreas or adrenal glands are identified. BILIARY: The gallbladder is normally distended. No significant biliary ductal dilatation is noted. BOWEL: Several mildly dilated fluid-filled loops of small bowel are identified in the right pelvis, measuring up to 3 cm in diameter, with the distal ileum being nondilated, raising concern for developing obstruction. The transition appears to occur in the right pelvis. The a ppendix appears to extend into the right lower quadrant ostomy of the urin christopher diversion and is not acutely inflamed. A couple of sigmoid diverticul a are identified without CT evidence of acute diverticulitis. PAGE 1 Signed Report (CONTINUED) Kain casey: VINI MARIA [facility] : 07/1960 Age/S: 58 / F [address] [place] [address] Unit #: [id number] Loc: [place] [address] Phys: Jeanine Pepe P Acct: [id number] Dis Akira e: 03/31/2019 Status: DIS IN PHONE #: Exam Date: 03/27/2019308 FAX #: [phone] Reason: diffuse abd pain with n/v; hx SBO EXAMS: CPT CODE: [id number] CT ABD PELVIS W/CONT 91915 <Continued> PERITONEUM: There is no evidence of free intraperitoneal air or significant free intraperitoneal fluid. RETROPERITONEUM: The abdominal aorta is normal in caliber. There is no evidence of retroperitoneal mass or adenopathy. PELVIS: The patient is status post cystectomy with pelvic node dissection and formation of a right lower quadrant urinary diversion. The patient is status post hysterectomy. The ovaries are not identified and may be surgically absent. No suspicious adnexal masses or enlarged pelvic lymph nodes are identified. LOWER CHEST: The lung bases appear clear of acute disease. ADDITIONAL FINDINGS: N one. IMPRESSION: 1. Status post left nephrectomy. The l obulated low-density collection in the left para-aortic retroperitoneum at the level of the surgical clips appears stable and may represent a po stoperative hematoma, seroma or lymphocele. 2. The patient is s tatus post cystectomy with pelvic node dissection and formation of a rig ht lower quadrant urinary diversion. 3. Right hydronephrosis and hydrou reter has increased since 01/29/2019 with the right ureter being dilated t o the level of the urinary diversion. Developing an anastomotic strictu re is a consideration. No calcified renal or ureteral stones are identi fied. 4. Multiple mildly dilated fluid-filled loops of small bowel are identified in the right pelvis with the distal ileum being nondilated, raising concern for obstruction. In the setting of prior pelvic surgery, postoperative adhesions is most likely. SL: 131 at 0348 Reported and signed by: Morris Guo M.D. PAGE 2 Signed Report (CONTINUED) Name: VINI MARIA [facility] : 1960 Age/S: 58 / F [address] [place] [address] Unit #: [id number] Loc: [place] [address] Phys: Jeanine Pepe COMMUNITY SUPPORT ASSOCIATE Acct: [id number] Dis Date: 03/31/2019 Status: DIS IN PHONE #: [phone] Exam Date: 03/27/2019308 FAX #: [phone] Reason: dif fuse abd pain with n/v; hx SBO EXAMS: CPT CODE: [id number] CT ABD PELVIS W/CONT 97286 <Continued> CC: Jeanine Pepe COMMUNITY SUPPORT ASSOCIATE; Mellissa Story MD Technologist:Franco Sanches, (R) CTDI: DLP: Trnscb Date/Time: 03/27/2019 (0348) [email or web address] Orig Print D/T: S: 03/27/2019 (0351) PAGE 3 Signed Report - CT ABD PELVIS [id number] 03:48:00 Name: VINI MARIA [facility] : 1960 Age/S: 58 / F [address] [place] [address] Unit #: [id number] Loc: [place] [address] Phys: Jeanine Pepe NP Acct: [id number] Dis Date: Status: REG ER PHONE #: [phone] Exam Date: 03/27/2019 030 FAX #: [phone] Reason: diffuse abd pain with n/v; hx SBO EXAMS: CPT CODE: [id number] CT ABD PELVIS W/CONT 86102 PROCEDURE: CT abdomen and pelvis with contrast dated 03/27/2019. INDICATION: Generalized abdominal pain. Nausea and vomiting. Prior history of small bowel obstruction. COMPARISON: CT abdomen dated 01/29/2019. TECHNIQUE: A CT of the abdomen pelvis was performed using helical images from the thoracic outlet through the pubic symphysis with subsequent sagittal and coronal reconstruction. IV CONTRAST: 100 cc of Isovue-300 GI CONTRAST: 500 mL of dilute Omnipaque [address] imaging performed at this location utilizes radiation dose optimization techniques which include one or more of the followin) Automated exposure control; 2) Adjustment of mA and/or kV; 3) Use of iterative reconstructive technique. CT radiation dose DLP (mGy- cm): 340. FINDINGS: SOLID ORGANS: The patient is status post left nephrectomy. The lobulated low-density collection in the left para-aortic retroperitoneum at the level of the surgical clips appears stable and may represent a postoperative hematoma, seroma or lymphocele. Right hydronephrosis/hydroureter is identified with the ureter being dilated to the level of the urinary diversion. The degree of right renal collecting system dilatation appears to have increased when compared to the preceding CT. No calcified renal or ureteral stones are detected. No CT abnormalities of the liver, spleen, pancreas or adrenal glands are identified. BILIARY: The gallbladder is normally distended. No significant biliary ductal dilatation is noted. BOWEL: Several mildly dilated fluid-filled loops of small bowel are identified in the right pelvis, measuring up to 3 cm in diameter, with the distal ileum being nondilated, raising concern for developing obstruction. The transition appears to occur in the right pelvis. The a ppendix appears to extend into the right lower quadrant ostomy of the urin christopher diversion and is not acutely inflamed. A couple of sigmoid diverticul a are identified without CT evidence of acute diverticulitis. PAGE 1 Signed Report (CONTINUED) Nam e: VINI MARIA [facility] : 07/1960 Age/S: 58 / F [address] [place] [address] Blvd Unit #: [id number] Loc: [place] [address] Phys: Jeanine Pepe Acct: [id number] Dis Akira e: Status: REG ER PHONE #: Exam Date: 03/27/2019308 FAX #: [phone] Reason: diffuse abd pain with n/v; hx SBO EXAMS: CPT CODE: [id number] CT ABD PELVIS W/CONT 13071 <Continued> PERITONEUM: There is no evidence of free intraperitoneal air or significant free intraperitoneal fluid. RETROPERITONEUM: The abdominal aorta is normal in caliber. There is no evidence of retroperitoneal mass or adenopathy. PELVIS: The patient is status post cystectomy with pelvic node dissection and formation of a right lower quadrant urinary diversion. The patient is status post hysterectomy. The ovaries are not identified and may be surgically absent. No suspicious adnexal masses or enlarged pelvic lymph nodes are identified. LOWER CHEST: The lung bases appear clear of acute disease. ADDITIONAL FINDINGS: N one. IMPRESSION: 1. Status post left nephrectomy. The l obulated low-density collection in the left para-aortic retroperitoneum at the level of the surgical clips appears stable and may represent a po stoperative hematoma, seroma or lymphocele. 2. The patient is s tatus post cystectomy with pelvic node dissection and formation of a rig ht lower quadrant urinary diversion. 3. Right hydronephrosis and hydrou reter has increased since 01/29/2019 with the right ureter being dilated t o the level of the urinary diversion. Developing an anastomotic strictu re is a consideration. No calcified renal or ureteral stones are identi fied. 4. Multiple mildly dilated fluid-filled loops of small bowel are identified in the right pelvis with the distal ileum being nondilated, raising concern for obstruction. In the setting of prior pelvic surgery, postoperative adhesions is most likely. SL: 131 at 0348 Reported and signed by: Morris Guo M.D. PAGE 2 Signed Report (CONTINUED) Name: VINI MARIA [facility] : 1960 Age/S: 58 / F [address] [place] [address] Unit #: [id number] Loc: [place] [address] Phys: Jeanine Pepe NP Acct: [id number] Dis Date: Status: REG ER PHONE #: [phone] Exam Date: 03/27/2019 0309 FAX #: [phone] Reason: dif fuse abd pain with n/v; hx SBO EXAMS: CPT CODE: [id number] CT ABD PELVIS W/CONT 67069 <Continued> CC: Jeanine Pepe COMMUNITY SUPPORT ASSOCIATE; Mellissa Story MD Technologist:RT Janice(R) CTDI: DLP: Trnscb Date/Time: 03/27/2019 (347) tTORI Orig Print D/T: S: 03/27/2019 (035) PAGE 3 Signed Report HEPATIC FUNCTION [id number] 02:50:00* Test Item Value Reference Range Comments TOTAL PROTEIN (test code=PROT) 7.9 g/dL 6.4-8.2 ALBUMIN (test code=ALB) 4.30 g/dL 3.4-5.0 BILIRUBIN TOTAL (test code=BILT) 0.60 mg/dL 0.0-1.0 BILIRUBIN DIRECT (test code=BILD) 0.10 MG/DL 0.0-0.30 BILIRUBIN INDIRECT (test code=BILIND) 0.50 MG/DL SGOT/AST (test code=AST) 28 IUnit/L 15-37 SGPT/ALT (test code=ALT) 34 IUnit/L 15-65 ALKALINE PHOSPHATASE TOTAL (test code=ALKP) 85 IUnit/L 20-125 [id number] 02:50:00* Test Item Value Reference Range Comments LIPASE (test code=LIP) 235 IUnit/L 73-393 URINALYSIS [id number] 02:37:00* Test Item Value Reference Range Comments UA COLOR (test code=COLU) YELLOW YEL/STRAW UA APPEARANCE (test code=APPU) CLOUDY CLEAR UA GLUCOSE DIPSTICK (test code=DGLUU) NEGATIVE NEGATIVE UA BILIRUBIN DIPSTICK (test code=BILU) NEGATIVE NEGATIVE UA KETONE DIPSTICK (test code=KETU) NEGATIVE NEGATIVE UA SPECIFIC GRAVITY (test code=SGU) 1.013 1.005-1.030 UA BLOOD DIPSTICK (test code=CARLI) NEGATIVE NEGATIVE UA PH DIPSTICK (test code=JAG) 5.0 5.0-7.0 UA PROTEIN DIPSTICK (test code=PROU) 1+ NEGATIVE UA UROBILINIOGEN DIPSTICK (test code=URO) 0.2 mg/dL 0.2-1.0 UA NITRITE DIPSTICK (test code=JESUS) NEGATIVE NEGATIVE UA LEUKOCYTE ESTERASE DIPSTICK (test code=LEUU) 2+ NEGATIVE UA WBC (test code=WBCU) 21-50 WBC/HPF 0-3 UA RBC (test code=RBCU) 4-10 RBC/HPF 0-3 UA BACTERIA (test code=BACU) 1+ /HPF NONE SEEN UA SQUAMOUS CELLS (test code=SQU) 0-5 /HPF NONE SEEN UA MUCUS (test code=MUCU) TRACE /LPF NONE SEEN COMMENTS: Clean CatchCBC W/AUTO [id number] 02:35:00* Test Item Value Reference Range Comments WHITE BLOOD CELL (test code=WBC) 10.58 x10 3/uL 4.5-11.0 RED BLOOD CELL (test code=RBC) 4.25 x10 6/uL 3.54-5.02 HEMOGLOBIN (test code=HGB) 13.8 g/dL 11.0-15.0 HEMATOCRIT (test code=HCT) 39.7 % 33.0-45.0 MEAN CELL VOLUME (test code=MCV) 93.4 fL 81.0-99.0 MEAN CELL HGB (test code=MCH) 32.5 pg 27.0-33.0 MEAN CELL HGB CONCETRATION (test code=MCHC) 34.8 g/dL 33.0-37.0 RED CELL DISTRIBUTION WIDTH CV (test code=RDW) 12.0 % 11.5-14.5 RED CELL DISTRIBUTION WIDTH SD (test code=RDW-SD) 41.3 fL 37.0-54.0 PLATELET COUNT (test code=PLT) 209 x10 3/uL 150-400 MEAN PLATELET VOLUME (test code=MPV) 10.8 fL 7.0-9.0 NEUTROPHIL % (test code=NT%) 82.9 % 56.0-77.0 IMMATURE GRANULOCYTE % (test code=IG%) 0.3 % 0.0-2.0 LYMPHOCYTE % (test code=LY%) 10.2 % 14.0-32.0 MONOCYTE % (test code=MO%) 5.1 % 4.8-9.0 EOSINOPHIL % (test code=EO%) 1.0 % 0.3-3.7 BASOPHIL % (test code=BA%) 0.5 % 0.0-2.0 NUCLEATED RBC % (test code=NRBC%) 0.0 % 0-0 NEUTROPHIL # (test code=NT#) 8.77 x10 3/uL 2.0-7.6 IMMATURE GRANULOCYTE # (test code=IG#) 0.03 x10 3/uL 0.00-0.03 LYMPHOCYTE # (test code=LY#) 1.08 x10 3/uL 1.0-3.8 MONOCYTE # (test code=MO#) 0.54 x10 3/uL 0.1-0.8 EOSINOPHIL # (test code=EO#) 0.11 x10 3/uL 0.0-0.2 BASOPHIL # (test code=BA#) 0.05 x10 3/uL 0.0-0.2 NUCLEATED RBC # (test code=NRBC#) 0.00 x10 3/uL 0.0-0.1 MANUAL DIFF REQUIRED (test code=MDIFF) NO TROPONIN-I [id number] 01:59:00* Test Item Value Reference Range Comments TROPONIN-I RAPID (test code=TROPIRAP) 0.00 ng/mL 0.00-0.08 Performed by certified dicer machine operator at [facility] Negative: <=0.08 Positive: >=0.09An elevated troponin value alone is not sufficient todiagnose a myocardial infarction. Rather, the patient sclinical presentation (history, physical exam) and ECGshould be used in conjunction with troponin in thediagnostic evaluation of suspected myocardial infarction. Aserial sampling protocol is recommended to facilitate the identification of temporal changes in troponin levels characteristic of [place]. CHEMISTRY 8 [id number] 01:53:00* Test Item Value Reference Range Comments ISTAT-SODIUM (test code=NAP) MMOL/L 134-147 ISTAT-POTASSIUM (test code=KP) MMOL/L 3.4-5.0 ISTAT-CHLORIDE (test code=CLP) MMOL/L 100-108 ISTAT CARBON DIOXIDE (test code=ISTAT-CO2) mmol/L 21-33 ISTAT CALCIUM IONIZED (test code=ISTAT-MICHAEL) MG/DL 1.12-1.32 ISTAT-GLUCOSE (test code=GLUP) MG/DL 70-110 ISTAT-BUN (test code=BUNP) MG/DL 7-18 BEDSIDE CREATININE (test code=CREATBED) MG/DL 0.6-1.3 GLOMERULAR FILTRATION RATE POC (test code=GFRBED) 44 ML/MIN CHEMISTRY 8 [id number] 01:53:00* Test Item Value Reference Range Comments ISTAT-SODIUM (test code=NAP) 143 MMOL/L 134-147 ISTAT-POTASSIUM (test code=KP) 3.9 MMOL/L 3.4-5.0 ISTAT-CHLORIDE (test code=CLP) 106 MMOL/L 100-108 Performed by certified dicer machine operator at [facility] ISTAT CARBON DIOXIDE (test code=ISTAT-CO2) 23.0 mmol/L 21-33 ISTAT CALCIUM IONIZED (test code=ISTAT-MICHAEL) 1.15 MG/DL 1.12-1.32 ISTAT-GLUCOSE (test code=GLUP) 129 MG/DL 70-110 ISTAT-BUN (test code=BUNP) 25 MG/DL 7-18 BEDSIDE CREATININE (test code=CREATBED) 1.3 MG/DL 0.6-1.3 GLOMERULAR FILTRATION RATE POC (test code=GFRBED) 44 ML/MIN BASIC METABOLIC [id number] 16:00:00* Test Item Value Reference Range Comments SODIUM (test code=NA) 141 mEq/L 134-147 POTASSIUM (test code=K) 3.9 mEq/L 3.4-5.0 CHLORIDE (test code=CL) 109 mEq/L 100-108 CARBON DIOXIDE (test code=CO2) 28 mEq/L 21-33 ANION GAP (test code=GAP) 8 0-20 GLUCOSE (test code=GLU) 107 mg/dL 70-110 BLOOD UREA NITROGEN (test code=BUN) 11 mg/dL 7-18 GLOMERULAR FILTRATION RATE (test code=GFR) 45.8 80-90 Units of measure=ml/min/1.73 m2 CREATININE (test code=CREAT) 1.2 mg/dL 0.6-1.3 CALCIUM (test code=CA) 8.2 mg/dL 8.0-10.5 CBC W/AUTO [id number] 15:49:00* Test Item Value Reference Range Comments WHITE BLOOD CELL (test code=WBC) 5.74 x10 3/uL 4.5-11.0 RED BLOOD CELL (test code=RBC) 3.61 x10 6/uL 3.54-5.02 HEMOGLOBIN (test code=HGB) 11.8 g/dL 11.0-15.0 HEMATOCRIT (test code=HCT) 34.7 % 33.0-45.0 MEAN CELL VOLUME (test code=MCV) 96.1 fL 81.0-99.0 MEAN CELL HGB (test code=MCH) 32.7 pg 27.0-33.0 MEAN CELL HGB CONCETRATION (test code=MCHC) 34.0 g/dL 33.0-37.0 RED CELL DISTRIBUTION WIDTH CV (test code=RDW) 12.3 % 11.5-14.5 RED CELL DISTRIBUTION WIDTH SD (test code=RDW-SD) 43.8 fL 37.0-54.0 PLATELET COUNT (test code=PLT) 179 x10 3/uL 150-400 MEAN PLATELET VOLUME (test code=MPV) 10.7 fL 7.0-9.0 NEUTROPHIL % (test code=NT%) 64.9 % 56.0-77.0 IMMATURE GRANULOCYTE % (test code=IG%) 0.3 % 0.0-2.0 LYMPHOCYTE % (test code=LY%) 20.0 % 14.0-32.0 MONOCYTE % (test code=MO%) 11.1 % 4.8-9.0 EOSINOPHIL % (test code=EO%) 3.0 % 0.3-3.7 BASOPHIL % (test code=BA%) 0.7 % 0.0-2.0 NUCLEATED RBC % (test code=NRBC%) 0.0 % 0-0 NEUTROPHIL # (test code=NT#) 3.72 x10 3/uL 2.0-7.6 IMMATURE GRANULOCYTE # (test code=IG#) 0.02 x10 3/uL 0.00-0.03 LYMPHOCYTE # (test code=LY#) 1.15 x10 3/uL 1.0-3.8 MONOCYTE # (test code=MO#) 0.64 x10 3/uL 0.1-0.8 EOSINOPHIL # (test code=EO#) 0.17 x10 3/uL 0.0-0.2 BASOPHIL # (test code=BA#) 0.04 x10 3/uL 0.0-0.2 NUCLEATED RBC # (test code=NRBC#) 0.00 x10 3/uL 0.0-0.1 MANUAL DIFF REQUIRED (test code=MDIFF) NO PROCALCITONIN (PCT)2019-01-30 00:44:00* Test Item Value Reference Range Comments PROCALCITONIN (PCT) (test code=PROCAL) < 0.05 ng/mL 0.00-0.05 PROCALCITONIN (PCT) NORMAL RANGE (ADULT): <0.05 NG/ML. * a concentration <0.5 ng/mL represents a low risk of severe sepsis and/or septic shock.* a concentration >2 ng/mL represents a high risk of severe sepsis and/or septic shock.Nevertheless, concentrations <0.5 ng/mL do not exclude aninfection, on account of localized infections (withoutsystemic signs) which can be associated with such lowconcentrations, or a systemic infection in its initialstages (< 6 hours). Furthermore, increased procalcitonincan occur without infection. PCT concentrations between 0.5and 2.0 ng/mL should be interpreted taking into account thepatient's history. It is recommended to retest PCT within6-24 hours if any concentrations <2 ng/mL are obtained. - CT HEAD/BRAIN W/O [id number] 22:56:00 Name: VINI MARIA [facility] : 1960 Age/S: 58 / F [address] [place] [address] Unit #: [id number] Loc: [place] [address] Phys: Skyler Arroyo MD Acct: [id number] Dis Date: Status: DIS IN PHONE #: [phone] Exam Date: 01/29/20192244 FAX #: [phone] Reason: headache EXAMS: CPT CODE: [id number] CT HEAD/BRAIN W/O CONT 33817 Clinical Indication: headache; Comparison: None TECHNIQUE: CT images were obtained from the foramen magnum to the vertex without the use of intravenous contrast on a multidetector CT. Coronal and sagittal reconstructions were obtained. CT radiation dose DLP: 419 mGy-cm FINDINGS: BRAIN PARENCHYMA: There are normal núñez-white interfaces, sulci and gyri. There are no focal mass lesions on this noncontrast head CT. There is no mass effect, midline shift or edema. There are no intra-axial or extra-axial fluid collections, intraventricular or intraparenchymal hemorrhage. The pineal, sellar, brainstem, cerebellum and skull base regions appear unremarkable. VENTRICLES: The lateral ventricles, third and fourth ventricles appear unremarkable. The basilar cisterns are normal. ORBITS, MASTOIDS AND PARANASAL SINUSES: The visualized orbits and paranasal sinuses are unremarkable. The mastoid air cells are clear. SKULL: There are no osseous abnormalities. If there is further concern for intracranial pathology or acute stroke, MRI of the brain may be performed for complete assessment. IMPRESSION: Unremarkable noncontrast head CT with no mass, hemorrhage or subacute stroke. SL: [id number] at 2256 Repor mindy and signed by: Abdoulaye Elliott M.D. PAGE 1 Sig che Report (CONTINUED) Name: VINI MARIA [facility] [place] : 1960 Age/S: 58 / F [address] [place] [address] Unit #: [id number] Loc: [place] [address] Phys: Skyler Arroyo MD Acct: [id number] Dis Date: Status: DIS IN PHONE #: [phone] Exam Date: 01/29/20192244 FAX #: [phone] Reason: headache EXAMS: CPT CODE: [id number] CT HEAD/BRAIN W/O CONT 21051 <Continued> CC: Skyler Arroyo MD Technologist:Janeth Rees, RT(R) CTDI: DLP: Trnscb Date/Time: 01/29/2019 (2255) t.SDR.LNV Orig Print D/T: S: 01/29/2019 (2258) PAGE 2 Signed Report - CT HEAD/BRAIN W/O CONT 2019-01-29 22:56:00 Name: VINI MARAI [place] : 1960 Age/S: 58 / F [address] [place] [address] Unit #: [id number] Loc: [place] [address] Phys: Skyler Arroyo MD Acct: [id number] Dis Date: Status: REG ER PHONE #: [phone] Exam Date: 01/29/20192244 FAX #: [phone] Reason: headache EXAMS: CPT CODE: [id number] CT HEAD/BRAIN W/O CONT 32699 Clinical Indication: headache; Comparison: None TECHNIQUE: CT images were obtained from the foramen magnum to the vertex without the use of intravenous contrast on a multidetector CT. Coronal and sagittal reconstructions were obtained. CT radiation dose DLP: 419 mGy-cm FINDINGS: BRAIN PARENCHYMA: There are normal núñez-white interfaces, sulci and gyri. There are no focal mass lesions on this noncontrast head CT. There is no mass effect, midline shift or edema. There are no intra-axial or extra-axial fluid collections, intraventricular or intraparenchymal hemorrhage. The pineal, sellar, brainstem, cerebellum and skull base regions appear unremarkable. VENTRICLES: The lateral ventricles, third and fourth ventricles appear unremarkable. The basilar cisterns are normal. ORBITS, MASTOIDS AND PARANASAL SINUSES: The visualized orbits and paranasal sinuses are unremarkable. The mastoid air cells are clear. SKULL: There are no osseous abnormalities. If there is further concern for intracranial pathology or acute stroke, MRI of the brain may be performed for complete assessment. IMPRESSION: Unremarkable noncontrast head CT with no mass, hemorrhage or subacute stroke. SL: [id number] at 2256 Repor mindy and signed by: Abdoulaye Elliott M.D. PAGE 1 Sig che Report (CONTINUED) Name: VINI MARIA [facility] : 1960 Age/S: 58 / F [address] [place] [address] Unit #: [id number] Loc: [place] [address] Phys: Skyler Arroyo MD Acct: [id number] Dis Date: Status: REG ER PHONE #: [phone] Exam Date: 01/29/20192244 FAX #: [phone] Reason: headache EXAMS: CPT CODE: [id number] CT HEAD/BRAIN W/O CONT 39214 <Continued> CC: Skyler Arroyo MD Technologist:Janeth Rees, RT(R) CTDI: DLP: Trnscb Date/Time: 01/29/2019 (2255) t.SDR.LNV Orig Print D/T: S: 01/29/2019 (2258) CTDI: DLP: PAGE 2 Signed Report - CT ABD PELVIS [id number] 22:10:00 Name: VINI MARIA [facility] : 1960 Age/S: 58 / F [address] [place] [address] Unit #: [id number] Loc: [place] [address] Phys: Skyler Arroyo MD Acct: [id number] Dis Date: Status: DIS IN PHONE #: [phone] Exam Date: 01/29/20192108 FAX #: [phone] Reason: abdominal pain EXAMS: CPT CODE: [id number] CT ABD PELVIS W/CONT 82779 PROCEDURE: CT ABDOMEN AND PELVIS WITH CONTRAST INDICATION: 58 years Female, abdominal pain. History of bladder cancer. Status post left nephrectomy and hysterectomy COMPARISON: None. TECHNIQUE: Helical imaging performed diaphragm through the pubic symphysis utilizing IV contrast only. Axial, sagittal and coronal reconstructions are available. DOSE: CT imaging performed at this location utilizes radiation dose optimization technique which includes one or more of the followin) Automated exposure control; 2) Adjustment of the mA and/or kV according to patient's size; 3) Use of iterative reconstruction techniques. DLP (mGy-cm): 243 FINDINGS: LOWER CHEST: Limited visualization. No abnormalities. No pericardial effusion. SOLID ORGANS: Liver, spleen, and pancreas are within normal limits bilateral adrenal glands appear normal. Status post left nephrectomy and cystectomy without evidence for neobladder. Mild to moderate right hydroureteronephrosis with cutaneous urinary diversion along the right lower quadrant abdominal wall. No gallstones. No biliary ductal dilatation. BOWEL: No bowel dilatation or bowel wall thickening. Sigmoid colon is unremarkable. Perirectal fat planes are within normal limits. Nonvisualized appendix but no pericecal inflammatory changes. Distal small bowel surgical anastomosis without regional inflammatory changes PERITONEUM: No free intraperitoneal air or fluid. No stranding of the central mesentery. No peritoneal adenopathy by size criteria. RETROPERITONEUM: Abdominal aorta is normal caliber. No retroperitoneal adenopathy by size criteria. PELVIS: No pelvic mass. No pelvic free fluid. Urinary bladder is unremarkable. No pelvic adenopathy by size criteria. 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 Mild anterior compression deformity of T12, PAGE 1 Signed Report (CONTINUED) Name: VINI MARIA [facility] : 1960 Age/S: 58 / F [address] [facility] Unit #: [id number] Loc: [place] [address] Phys: Skyler Arroyo MD Acct: [id number] Dis Date: Status: DIS IN PHONE #: [phone] Exam Date: 01/29/20192108 FAX #: [phone] Reason: abdominal pain EXAMS: CPT CODE: [id number] CT ABD PELVIS W/CONT 50197 <Continued> likely chronic with marginal osteophyte formation and superior endplate Schmorl's node. 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 No acute osseous abnormalities. No destructive bony lesions. OTHER: None. IMPRESSION: 1. Mild to moderate right hydroureteronephrosis, which may be chronic, with cutaneous urinary diversion along the right lower quadrant abdominal wall. Correlate clinically. Comparison with prior films would be helpful 2. Otherwise, no acute findings SL: MAXI at 2210 Reported and signed by: Andres Ortiz M.D. CC: Skyler Arroyo MD Technologist:Janeth Rees, RT(R) CTDI: DLP: Trnscb Date/Time: 01/29/2019 (2209) t.JH8 Orig Print D/T: S: 01/29/2019 (4607) PAGE 2 Signed Report - CT ABD PELVIS [id number] 22:10:00 Name: VINI MARIA [facility] : 1960 Age/S: 58 / F [address] [place] [address] Unit #: [id number] Loc: [place] [address] Phys: Skyler Arroyo MD Acct: [id number] Dis Date: Status: REG ER PHONE #: [phone] Exam Date: 01/29/20192108 FAX #: [phone] Reason: abdominal pain EXAMS: CPT CODE: [id number] CT ABD PELVIS W/CONT 99112 PROCEDURE: CT ABDOMEN AND PELVIS WITH CONTRAST INDICATION: 58 years Female, abdominal pain. History of bladder cancer. Status post left nephrectomy and hysterectomy COMPARISON: None. TECHNIQUE: Helical imaging performed diaphragm through the pubic symphysis utilizing IV contrast only. Axial, sagittal and coronal reconstructions are available. DOSE: CT imaging performed at this location utilizes radiation dose optimization technique which includes one or more of the followin) Automated exposure control; 2) Adjustment of the mA and/or kV according to patient's size; 3) Use of iterative reconstruction techniques. DLP (mGy-cm): 243 FINDINGS: LOWER CHEST: Limited visualization. No abnormalities. No pericardial effusion. SOLID ORGANS: Liver, spleen, and pancreas are within normal limits bilateral adrenal glands appear normal. Status post left nephrectomy and cystectomy without evidence for neobladder. Mild to moderate right hydroureteronephrosis with cutaneous urinary diversion along the right lower quadrant abdominal wall. No gallstones. No biliary ductal dilatation. BOWEL: No bowel dilatation or bowel wall thickening. Sigmoid colon is unremarkable. Perirectal fat planes are within normal limits. Nonvisualized appendix but no pericecal inflammatory changes. Distal small bowel surgical anastomosis without regional inflammatory changes PERITONEUM: No free intraperitoneal air or fluid. No stranding of the central mesentery. No peritoneal adenopathy by size criteria. RETROPERITONEUM: Abdominal aorta is normal caliber. No retroperitoneal adenopathy by size criteria. PELVIS: No pelvic mass. No pelvic free fluid. Urinary bladder is unremarkable. No pelvic adenopathy by size criteria. 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 Mild anterior compression deformity of T12, PAGE 1 Signed Report (CONTINUED) Name: VINI MARIA [facility] : 1960 Age/S: 58 / F [address] [facility] Unit #: [id number] Loc: [place] [address] Phys: Skyler Arroyo MD Acct: [id number] Dis Date: Status: REG ER PHONE #: [phone] Exam Date: 01/29/20192108 FAX #: [phone] Reason: abdominal pain EXAMS: CPT CODE: [id number] CT ABD PELVIS W/CONT 11269 <Continued> likely chronic with marginal osteophyte formation and superior endplate Schmorl's node. 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 No acute osseous abnormalities. No destructive bony lesions. OTHER: None. IMPRESSION: 1. Mild to moderate right hydroureteronephrosis, which may be chronic, with cutaneous urinary diversion along the right lower quadrant abdominal wall. Correlate clinically. Comparison with prior films would be helpful 2. Otherwise, no acute findings SL: MAXI at 2210 Reported and signed by: Andres Ortiz M.D. CC: Skyler Arroyo MD Technologist:RT Cristopher(R) CTDI: DLP: Trnscb Date/Time: 01/29/2019 (2209) [email or web address] Orig Print D/T: S: 01/29/2019 (2214) CTDI: DLP: PAGE 2 Signed Report HEPATIC FUNCTION [id number] 21:28:00* Test Item Value Reference Range Comments TOTAL PROTEIN (test code=PROT) 7.6 g/dL 6.4-8.2 ALBUMIN (test code=ALB) 3.90 g/dL 3.4-5.0 BILIRUBIN TOTAL (test code=BILT) 1.50 mg/dL 0.0-1.0 BILIRUBIN DIRECT (test code=BILD) 0.30 MG/DL 0.0-0.30 BILIRUBIN INDIRECT (test code=BILIND) 1.20 MG/DL SGOT/AST (test code=AST) 29 IUnit/L 15-37 SGPT/ALT (test code=ALT) 38 IUnit/L 15-65 ALKALINE PHOSPHATASE TOTAL (test code=ALKP) 76 IUnit/L 20-125 URINALYSIS [id number] 21:04:00* Test Item Value Reference Range Comments UA COLOR (test code=COLU) YELLOW YEL/STRAW UA APPEARANCE (test code=APPU) SL CLOUDY CLEAR UA GLUCOSE DIPSTICK (test code=DGLUU) NEGATIVE NEGATIVE UA BILIRUBIN DIPSTICK (test code=BILU) NEGATIVE NEGATIVE UA KETONE DIPSTICK (test code=KETU) TRACE NEGATIVE UA SPECIFIC GRAVITY (test code=SGU) 1.006 1.005-1.030 UA BLOOD DIPSTICK (test code=CARLI) 2+ NEGATIVE UA PH DIPSTICK (test code=JAG) 5.0 5.0-7.0 UA PROTEIN DIPSTICK (test code=PROU) NEGATIVE NEGATIVE UA UROBILINIOGEN DIPSTICK (test code=URO) 0.2 mg/dL 0.2-1.0 UA NITRITE DIPSTICK (test code=JESUS) POSITIVE NEGATIVE UA LEUKOCYTE ESTERASE DIPSTICK (test code=LEUU) 3+ NEGATIVE UA WBC (test code=WBCU) >50 WBC/HPF 0-3 UA RBC (test code=RBCU) 11-20 RBC/HPF 0-3 UA BACTERIA (test code=BACU) 3+ /HPF NONE SEEN UA SQUAMOUS CELLS (test code=SQU) NONE SEEN /HPF NONE SEEN UA MUCUS (test code=MUCU) TRACE /LPF NONE SEEN COMMENTS: Clean CatchUA CULT [id number] 21:04:00* Test Item Value Reference Range Comments UA CULTURE NEEDED? (test code=UACULT) YES,WBC>10 & EPI<=25 Criteria Culture Chk Criteria met, Urine Culture in-process. COMMENTS: Clean CatchCBC W/AUTO [id number] 21:02:00* Test Item Value Reference Range Comments WHITE BLOOD CELL (test code=WBC) 11.62 x10 3/uL 4.5-11.0 RED BLOOD CELL (test code=RBC) 3.88 x10 6/uL 3.54-5.02 HEMOGLOBIN (test code=HGB) 12.7 g/dL 11.0-15.0 HEMATOCRIT (test code=HCT) 37.7 % 33.0-45.0 MEAN CELL VOLUME (test code=MCV) 97.2 fL 81.0-99.0 MEAN CELL HGB (test code=MCH) 32.7 pg 27.0-33.0 MEAN CELL HGB CONCETRATION (test code=MCHC) 33.7 g/dL 33.0-37.0 RED CELL DISTRIBUTION WIDTH CV (test code=RDW) 12.1 % 11.5-14.5 RED CELL DISTRIBUTION WIDTH SD (test code=RDW-SD) 43.2 fL 37.0-54.0 PLATELET COUNT (test code=PLT) 194 x10 3/uL 150-400 MEAN PLATELET VOLUME (test code=MPV) 10.6 fL 7.0-9.0 NEUTROPHIL % (test code=NT%) 89.4 % 56.0-77.0 IMMATURE GRANULOCYTE % (test code=IG%) 0.6 % 0.0-2.0 LYMPHOCYTE % (test code=LY%) 5.4 % 14.0-32.0 MONOCYTE % (test code=MO%) 4.2 % 4.8-9.0 EOSINOPHIL % (test code=EO%) 0.1 % 0.3-3.7 BASOPHIL % (test code=BA%) 0.3 % 0.0-2.0 NUCLEATED RBC % (test code=NRBC%) 0.0 % 0-0 NEUTROPHIL # (test code=NT#) 10.39 x10 3/uL 2.0-7.6 IMMATURE GRANULOCYTE # (test code=IG#) 0.07 x10 3/uL 0.00-0.03 LYMPHOCYTE # (test code=LY#) 0.63 x10 3/uL 1.0-3.8 MONOCYTE # (test code=MO#) 0.49 x10 3/uL 0.1-0.8 EOSINOPHIL # (test code=EO#) 0.01 x10 3/uL 0.0-0.2 BASOPHIL # (test code=BA#) 0.03 x10 3/uL 0.0-0.2 NUCLEATED RBC # (test code=NRBC#) 0.00 x10 3/uL 0.0-0.1 MANUAL DIFF REQUIRED (test code=MDIFF) NO - XR CHEST 1 [id number] 20:59:00 FAX: Skyler Mena MD [phone] [place]: St: DIS Name: VINI KRAMER [facility] : [birth year] Age/S: 58/F [address] [place] [address] Unit #: [id number] Loc: [place] [address] Phys: Skyler Arroyo MD Acct: [id number] Dis Date: Status: DIS IN PHONE #: [phone] Exam Date: 01/29/20192043 FAX #: [phone] Reason: concern for infection EXAMS: CPT CODE: [id number] XR CHEST 1 V 17430 PROCEDURE: CHEST SINGLE VIEW INDICATION: Concern for infection, hypotension, dizziness COMPARISON: None. FINDINGS: The lungs are clear. The pleura, card iomediastinal silhouette and bony thorax are normal. No vascular congestio n is present. IMPRESSION: No acute cardiopulmonary process . SL: BM-H at 2059 Reported and signed by: Myles Hopkins M.D. CC: Skyler Marinelli chnologist: Kyara Rollins, RT(R)(M) [facility] Date/ Time/By: 01/29/2019 (2058) : By: [email or web address] Orig Print D/T: S: 01/30/20 (2101) PAGE 1 Signed Report - XR CHEST 1 [id number] 20:59:00 FAX: Skyler Mena MD [phone] [place]: St: REG Name: VINI KRAMER [facility] : [birth year] Age/S: 58/F [address] [place] [address] Unit #: [id number] Loc: [place] [address] Phys: Skyler Arroyo MD Acct: [id number] Dis Date: Status: REG ER PHONE #: [phone] Exam Date: 01/29/20192043 FAX #: [phone] Reason: concern for infection EXAMS: CPT CODE: [id number] XR CHEST 1 V 63623 PROCEDURE: CHEST SINGLE VIEW INDICATION: Concern for infection, hypotension, dizziness COMPARISON: None. FINDINGS: The lungs are clear. The pleura, card iomediastinal silhouette and bony thorax are normal. No vascular congestio n is present. IMPRESSION: No acute cardiopulmonary process . SL: BM-H at 2058 Reported and signed by: Myles Hopkins M.D. CC: Skyler Arroyo MD Te chnologist: Kyara Rollins RT(R)(M) Trnscrd Date/ Time/By: 01/29/2019 (2058) : By: [email or web address] Orig Print D/T: S: 01/30/20 (2101) PAGE 1 Signed Report TROPONIN-I [id number] 20:23:00* Test Item Value Reference Range Comments TROPONIN-I RAPID (test code=TROPIRAP) 0.01 ng/mL 0.00-0.08 Performed by certified dicer machine operator at [facility] Negative: <=0.08 Positive: >=0.09An elevated troponin value alone is not sufficient todiagnose a myocardial infarction. Rather, the patient sclinical presentation (history, physical exam) and ECGshould be used in conjunction with troponin in thediagnostic evaluation of suspected myocardial infarction. Aserial sampling protocol is recommended to facilitate the identification of temporal changes in troponin levels characteristic of [place]. LACTIC ACID [id number] 20:17:00* Test Item Value Reference Range Comments LACTIC ACID POC (test code=LACTP) 1.5 MMOL/L 0.90-1.70 Performed by certified dicer machine operator at [facility] CHEMISTRY 8 [id number] 20:15:00* Test Item Value Reference Range Comments ISTAT-SODIUM (test code=NAP) MMOL/L 134-147 ISTAT-POTASSIUM (test code=KP) MMOL/L 3.4-5.0 ISTAT-CHLORIDE (test code=CLP) MMOL/L 100-108 ISTAT CARBON DIOXIDE (test code=ISTAT-CO2) mmol/L 21-33 ISTAT CALCIUM IONIZED (test code=ISTAT-MICHAEL) MG/DL 1.12-1.32 ISTAT-GLUCOSE (test code=GLUP) MG/DL 70-110 ISTAT-BUN (test code=BUNP) MG/DL 7-18 BEDSIDE CREATININE (test code=CREATBED) MG/DL 0.6-1.3 GLOMERULAR FILTRATION RATE POC (test code=GFRBED) 60 ML/MIN CHEMISTRY 8 [id number] 20:15:00* Test Item Value Reference Range Comments ISTAT-SODIUM (test code=NAP) 135 MMOL/L 134-147 ISTAT-POTASSIUM (test code=KP) 3.8 MMOL/L 3.4-5.0 ISTAT-CHLORIDE (test code=CLP) 99 MMOL/L 100-108 Performed by certified dicer machine operator at [facility] ISTAT CARBON DIOXIDE (test code=ISTAT-CO2) 24.0 mmol/L 21-33 ISTAT CALCIUM IONIZED (test code=ISTAT-MICHAEL) 1.10 MG/DL 1.12-1.32 ISTAT-GLUCOSE (test code=GLUP) 112 MG/DL 70-110 ISTAT-BUN (test code=BUNP) 14 MG/DL 7-18 BEDSIDE CREATININE (test code=CREATBED) 1.0 MG/DL 0.6-1.3 GLOMERULAR FILTRATION RATE POC (test code=GFRBED) 60 ML/MIN
--- OUTSIDE RECORDS SUMMARY | 2019-09-24 16:05 | XMS REPORT | Continuity of Care Document ---
Author Author [facility] Organization [facility] Address Unknown Phone Unavailable Care Team Providers Care Customer Trainer Name Role Phone Phil Seay RDH Unavailable Unavailable Allergies, Adverse Reactions, Alerts Substance Reaction Status No information Medications Medication Instructions Dosage Effective Dates (start - stop) Status Comments No information Problems Condition Effective Dates (start - stop) Clinical Status Comments No information Procedures Procedure Date Nominal Fee Periodontal Scaling And Root Planing Four Or Mor Periodontal Scaling And Root Planing Four Or Mor Results Test Name Date and Time Measure Units Reference Range Abnormal Flag Status Comments No information Advance Directives Directive Yes / No Effective Date File Name No information Encounters Encounter Description Practice Location Reason(s) For Visit Diagnoses Date Provider Providers Copied on Encounter [facility], [address], [place], [place], [address], tel:[phone] [facility] Chronic periodontitis, generalized, slight Geena Lemons [address] [facility], [address], [place], [place], [address]. tel:[phone] Referring Provider: Abhi Vallecillo[address], [place], [place], [address]. tel:[phone] [facility], [address], [place], [place], [address], tel:[phone] [facility] Chronic periodontitis, generalized, slight Geena Lemons [address], [address], [place], [place], [address]. tel:[phone] Referring Provider: Abhi Vallecillo[address], [place], [place], [address]. tel:[phone] [facility], [address], [place], [place], [address], tel:[phone] [facility] Encounter for dental exam and cleaning w/o abnormal findings Shilpa Ayoub. [address], [address], [place], [place], [address]. tel:[phone] Referring Provider: Mega Massey, [address], [place], [place], [address]. tel:[phone] [facility], [address], [place], [place], [address], tel:[phone] [facility] Encounter for dental exam and cleaning w/o abnormal findings Geena Villarreal. [address], [place], [place], [address]. tel:[phone] Referring Provider: Phil Seay [address], [place], [place], [address]. tel:[phone] [facility], [address], [place], [place], [address], tel:[phone] [facility] Encounter for dental exam and cleaning w/o abnormal findings [facility], [address], [place], [place], [address], tel:[phone] [facility] Encounter for dental exam and cleaning w/o abnormal findings [facility], [address], [place], [place], [address], tel:[phone] [facility] Encounter for dental exam and cleaning w/o abnormal findings Geena Villarreal. [address], [place], [place], [address]. tel:[phone] Referring Provider: Phil Seay, [address], [place], [place], [address]. tel:[phone] [facility], [address], [place], [place], [address], tel:[phone] [facility] Encounter for dental exam and cleaning w/o abnormal findings Family History Family Member Diagnosis Age At Onset No information Immunizations Vaccine Date Status Comments No information Payers Payer name Insurance type Covered green party ID Authorization(s) No information Social History Type Description Quantity Date Captured Comments Sex Female Vital Signs Date / Time: Height Weight BMI Pulse Rate Blood Pressure Temperature Respiratory Rate Body Surface Area Head Circumference BMI percentile Pulse Ox Inhaled Ox No information Chief Complaint And Reason For Visit No information Reason For Referral Reason For Referral No information Plan Of Treatment Date Type Action Status Appointment Martha Gallegos BOOKED Appointment Martha Gallegos BOOKED Appointment Martha Gallegos BOOKED Appointment Martha Gallegos BOOKED History Of Present Illness Encounter Date Complaint History Of Present Illness No information Functional Status Date Functional Assessment No information Medications Administered Medication Instructions Dosage Effective Dates (start - stop) Status Comments No information Instructions Date Instruction Additional Information No information Assessments Type Assessment Date No information Goals Health Concern Goal Type Priority Status Date No information Medical Equipment Description Device [place] Device Identifier Effective Dates (start - stop) Status No information Mental Status Date Cognitive Assessment No information Health Concerns Observation Date No information Concern Status Date No information
--- OUTSIDE RECORDS SUMMARY | 2019-09-24 16:05 | XMS REPORT | Summary of Care ---
Author Author SHARRON Tavarez, LADAN JULIAN [facility] Unknown Address Unknown Phone Unavailable Care Team Providers Care Glass Pulverizer Equipment Operator Name Role Phone SHARRON Tavarez, LADAN JULIAN Unavailable Unavailable JACQUELINE WEAVER, SHARAD Unavailable Unavailable SHARRON WEAVER ND, LADAN JULIAN Unavailable Unavailable ELBA WEAVER, AGUSTÍN GARCIA Unavailable Unavailable Unavailable Unavailable Functional Status Name Dates Details Functional status health issues are not documented Status: Name Dates Details Cognitive status health issues are not documented Status: Problems Name Dates Details Spina bifida (741.90, Q05.9) Status: Active Chronic pain (338.29, G89.29) Status: Active Insomnia (780.52, G47.00) Status: Active Dermatitis (692.9, L30.9) Status: Active Depression (311, F32.9) Status: Active Lumbago (724.2, M54.5) Status: Active Tenosynovitis of finger (727.05, M65.9) Status: Active Seronegative rheumatoid arthritis of multiple sites (714.0, M06.09) Status: Active Abnormal antibody titer (795.79, R76.0) Status: Active Inflammatory polyarthropathy (714.9, M06.4) Status: Active Long-term use of immunosuppressant medication (V58.69, Z79.899) Status: Active Systemic lupus erythematosus (710.0, M32.9) Status: Active Chronic fatigue (780.79, R53.82) Status: Active Left trigger finger (727.03, M65.30) Status: Active Hand pain (729.5, M79.643) Status: Active Chronic right-sided low back pain without sciatica (724.2, M54.5) Status: Active Vertebral compression fracture (805.8, M48.50XA) Status: Active Vitamin D insufficiency (268.9, E55.9) Status: Active GERD (gastroesophageal reflux disease) (530.81, K21.9) Status: Active Osteoporosis (733.00, M81.0) Status: Active Cervical radiculopathy (723.4, M54.12) Status: Active Bilateral arm numbness and tingling while sleeping (782.0, R20.0) Status: Active Abnormal MRI, cervical spine (793.7, R93.7) Status: Active 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 Active ALPRAZolam 2 MG Oral Tablet TAKE 1 TABLET DAILY * Refills: 0 M.A. Active Hydroxychloroquine Sulfate 200 MG Oral Tablet TAKE 1 TABLET BY MOUTH DAILY * Quantity: 30 Refills: 5 LADAN LANZA M.D. * Start : 15-Aug-2016 Active Eszopiclone 1 MG Oral Tablet TAKE 1 TABLET AT BEDTIME. * Refills: 0 M.A. * Start : 19-Dec-2016 Active Vitamin B Complex Oral Tablet TAKE 1 TABLET DAILY. * Refills: 0 M.A. * Start : 21-Dec-2017 Active Alendronate Sodium 70 MG Oral Tablet TAKE 1 TABLET BY MOUTH ONCE WEEKLY WITH A LARGE GLASS OF WATER. SIT UP FOR AT LE AST 30 MINUTES AFTER TAKING PILL * Quantity: 4 Refills: 5 LADAN LANZA M.D. * Start : 07-Jan-2019 Active Calcium 1200 5042-9676 MG-UNIT Oral Tablet Chewable TAKE 1 TABLET DAILY * Refills: 0 M.A. * Start : 08-May-2018 Active Omeprazole 20 MG Oral Capsule Delayed Release TAKE 1 CAPSULE BY MOUTH EVERY MORNING BEFORE BREAKFAST * Quantity: 30 Refills: 0 LADAN LANZA M.D. * Start : 13-Feb-2019 Active Levothyroxine Sodium 25 MCG Oral Tablet TAKE 1 TABLET DAILY. * Refills: 0 M.A. * Start : 02-Aug-2019 Active Folic Acid 800 MCG Oral Tablet TAKE 1 TABLET DAILY DIRECTED. * Refills: 0 M.A. * Start : 02-Aug-2019 Active Tylenol with Codeine #3 300-30 MG Oral Tablet TAKE 1 TABLET EVERY 6 HOURS NEEDED FOR PAIN. * Refills: 0 M.A. * Start : 02-Aug-2019 Active Linzess 72 MCG Oral Capsule TAKE 1 CAPSULE EVERY OTHER DAY * Refills: 0 M.A. * Start : 02-Aug-2019 Active Allergies and Adverse Reactions Name Dates Details Motrin (Allergy) Status: Active Shellfish-derived Products (Allergy) Status: Active Past Medical History Name Dates Details History of Anemia (285.9, D64.9) Status: Resolved History of Bladder cancer (188.9, C67.9) Status: Resolved History of Cataract (366.9, H26.9) Status: Resolved History of Colitis (558.9, K52.9) Status: Resolved History of Deep venous thrombosis of right upper extremity (453.82, I82.621) Status: Resolved History of Kidney disease (593.9, N28.9) Status: Resolved History of Lupus (710.0, M32.9) Status: Resolved History of Pyelonephritis (590.80, N12) Status: Resolved Procedures Procedure Dates Details MA Bone Density DXA Dual Energy 21148 Date: 02-Aug-2019 History of Diagnostic Cystoscopy Completed History of Bladder Surgery Completed History of Nephrectomy Completed History of Tubal Ligation Completed History of Spinal Arthrodesis Completed History of Hysterectomy Completed History of Bladder Cystectomy Completed Immunization Name Dates Details Zoster (Zostavax) Lot #: [id number] on: 09-Oct-2015 Family History Name Dates Details Family history of Colitis (558.9, K52.9) Comments: Other Status: Active Name Dates Details Family history of Cancer (199.1, C80.1) Status: Active Name Dates Details Family history of Stroke (434.91, I63.9) Status: Active Name Dates Details Family history of Rheumatic fever (390, I00) Status: Active Name Dates Details Family history of Cancer (199.1, C80.1) Status: Active Family history of Lupus (710.0, M32.9) Status: Active Name Dates Details Family history of Diabetes (250.00, E11.9) Status: Active Family history of Cancer (199.1, C80.1) Status: Active Name Dates Details Family history of Arthritis (716.90, M19.90) Status: Active Family history of Hypertension (401.9, I10) Status: Active Social History Name Dates Details - Status: Name Dates Details Former smoker Vital Signs Date Test Result Details [id number]-[id number]:25 BP Systolic 104 mm[Hg] Status: Comments: Location: LUE; Position: Sitting BP Diastolic 66 mm[Hg] Status: Comments: Location: E; Position: Sitting Temperature 98.3 f Status: Comments: Method: Oral Height 60 in Status: Weight 141.125 lb Status: Body Mass Index Calculated 27.56 kg/m2 Status: Body Surface Area Calculated 1.61 m2 Status: Heart Rate 69 /min Status: Results Date Description Value Details :30 [QL] COMPLEMENT COMP C3 + C4 COMPLEMENT COMPONENT C3C 106 mg/dl (Normal) Range: 83-193 COMPLEMENT COMPONENT C4C 28 mg/dl (Normal) Range: 15-57 0-Oaa-057696:30 [QLH] CMP W/EGFR GLUCOSE 80 mg/dl (Normal) Range: 65-139 Comments: Non-fasting reference interval UREA NITROGEN (BUN) 16 mg/dl (Normal) Range: 7-25 CREATININE 0.95 mg/dl (Normal) Range: 0.50-0.99 Comments: For patients >49 years of age, the reference limitfor Creatinine is approximately 13% higher for peopleidentified as -Thai. eGFR NON- 65 {ML/MIN/1.7} (Normal) Range: > OR=60 eGFR 75 {ML/MIN/1.7} (Normal) Range: > OR=60 BUN/CREATININE RATIO NOT APPLICABLE {CALC} Range: 6-22 SODIUM 140 mmol/L (Normal) Range: 135-146 POTASSIUM 4.0 mmol/L (Normal) Range: 3.5-5.3 CHLORIDE 107 mmol/L (Normal) Range: 98-110 CARBON DIOXIDE 25 mmol/L (Normal) Range: 20-32 CALCIUM 8.9 mg/dl (Normal) Range: 8.6-10.4 PROTEIN, TOTAL 6.9 g/dl (Normal) Range: 6.1-8.1 ALBUMIN 4.2 g/dl (Normal) Range: 3.6-5.1 GLOBULIN 2.7 {G/DL__CALC} (Normal) Range: 1.9-3.7 ALBUMIN/GLOBULIN RATIO 1.6 {CALC} (Normal) Range: 1.0-2.5 BILIRUBIN, TOTAL 0.6 mg/dl (Normal) Range: 0.2-1.2 ALKALINE PHSPHATASE 67 u/l (Normal) Range: 33-130 AST 30 u/l (Normal) Range: 10-35 ALT 33 u/l (Above high threshold) Range: 6-29 [QLH] SED RATE BY MODIFIED WESTERGREN SED RATE BY MODIFIED WESTERGREN 6 mm/h (Normal) Range: < OR=30 [QLH] CBC (INCLUDES DIFF/PLT) WHITE BLOOD CELL COUNT 4.0 {Thousand/u} (Normal) Range: 3.8-10.8 RED BLOOD CELL COUNT 3.97 {Million/uL} (Normal) Range: 3.80-5.10 HEMAGLOBIN 13.0 g/dl (Normal) Range: 11.7-15.5 HEMATOCRIT 37.3 % (Normal) Range: 35.0-45.0 MCV 94.0 fL (Normal) Range: 80.0-100.0 MCH 32.7 pg (Normal) Range: 27.0-33.0 MCHC 34.9 g/dl (Normal) Range: 32.0-36.0 RDW 12.1 % (Normal) Range: 11.0-15.0 PLATELET COUNT 225 {Thousand/u} (Normal) Range: 140-400 MPV 10.6 fL (Normal) Range: 7.5-12.5 ABSOLUTE NEUTROPHILS 1884 {cells/uL} (Normal) Range: 9429-1417 ABSOLUTE LYMPHOCYTES 1432 {cells/uL} (Normal) Range: 850-3900 ABSOLUTE MONOCYTES 436 {cells/uL} (Normal) Range: 200-950 ABSOLUTE EOSINOPHILS 188 {cells/uL} (Normal) Range: 15-500 ABSOLUTE BASOPHILS 60 {cells/uL} (Normal) Range: 0-200 NEUTROPHILS 47.1 % (Normal) LYMPHOCYTES 35.8 % (Normal) MONOCYTES 10.9 % (Normal) EOSINOPHILS 4.7 % (Normal) BASOPHILS 1.5 % (Normal) [QLH] C-REACTIVE PROTEIN C-REACTIVE PROTEIN 1.0 mg/L (Normal) Range: <8.0 [QLH] TSH, 3RD GENERATION W/REFLEX TO FT4 TSH, 3RD GENERATION W/REFLEX TO FT4 2.57 {MIU/L} (Normal) Range: 0.40-4.50 [QLH] VITAMIN D, 25-HYDROXY, LC/MS/MS Comments: REPORT COMMENT:FASTING:NO VITAMIN D,25-OH,TOTAL,IA 56 ng/ml (Normal) Range: 30-100 Comments: Vitamin D Status 25-OH Vitamin D: Deficiency: <20 ng/mLInsufficiency: 20 - 29 ng/mLOptimal: > or=30 ng/mL For 25-OH Vitamin D testing on patients on D2-supplementation and patients for whom quantitation of D2 and D3 fractions is required, the QuestAssureD(TM)25-OH VIT D, (D2,D3), LC/MS/MS is recommended: order code 78824 (patients >2yrs). For more information on this test, go to:http://education.[employer]..Traxo/faq/YBO116(This link is being provided for informational/educational purposes only.) Plan of Care Name Dates Details Planned Observations Planned Goals not documented Planned Encounters Appointment; LADAN LANZA M.D. On: 03-Dec-2019 11:30 Interventions Provided Discussion/Summary* Dear Ms. MARIA, * I have enclosed your lab results. Your blood counts and kidney function are normal. One of your liver enzymes is mildly elevated, change minimal, we can monitor. Your inflammation markers are normal. Your vitamin D and thyroid studies look good. Please call with questions. * Thank you, * Ladan Lanza MD Instructions Name Dates Details Instructions not documented Encounters Appointment; LADAN LANZA M.D. Encounter Diagnosis: Problem not documented On: 14-Sep-2017 14:00 Appointment; LADAN LANZA M.D. Encounter Diagnosis: Problem not documented On: 21-Dec-2017 11:00 Appointment; LADAN LANZA M.D. Encounter Diagnosis: Problem not documented On: 05-Apr-2018 14:30 Appointment; LADAN LANZA M.D. Encounter Diagnosis: Problem not documented On: 08-May-2018 14:00 Appointment; LADAN LANZA M.D. Encounter Diagnosis: Problem not documented On: 06-Aug-2018 15:00 Appointment; LADAN LANZA M.D. Encounter Diagnosis: Problem not documented On: 05-Nov-2018 15:30 Appointment; LADAN LANZA M.D. Encounter Diagnosis: Problem not documented On: 29-Jan-2019 15:30 Appointment; LADAN LANZA M.D. Encounter Diagnosis: Problem not documented On: 30-Apr-2019 14:00 Appointment; LADAN LANZA M.D. Encounter Diagnosis: Problem not documented On: 02-Aug-2019 10:30
--- OUTSIDE RECORDS SUMMARY | 2019-09-24 16:05 | XMS REPORT | Continuity of Care Document ---
Author Author [facility] Organization [facility] Address Unknown Phone Unavailable Care Team Providers Care Cloth Desizing Range Operator Chief Name Role Phone Mega Massey DDS Unavailable Unavailable Allergies, Adverse Reactions, Alerts Substance Reaction Status No information Medications Medication Instructions Dosage Effective Dates (start - stop) Status Comments No information Problems Condition Effective Dates (start - stop) Clinical Status Comments No information Procedures Procedure Date Nominal Fee Resin-Based Composite One Surface, Posterior Resin-Based Composite One Surface, Posterior Resin-Based Composite One Surface, Posterior Results Test Name Date and Time Measure Units Reference Range Abnormal Flag Status Comments No information Advance Directives Directive Yes / No Effective Date File Name No information Encounters Encounter Description Practice Location Reason(s) For Visit Diagnoses Date Provider Providers Copied on Encounter [facility], [address], [place], [place], [address], tel:[phone] [facility] Encounter for dental exam and cleaning w/o abnormal findings Shilpa Ayoub. [address] [facility], [address], [place], [place], [address]. tel:[phone] Referring Provider: Mega Massey [address], [place], [place], [address]. tel:[phone] [facility], [address], [place], [place], [address], tel:[phone] [facility] Chronic periodontitis, generalized, slight Geena Villarreal. [address] [facility], [address], [place], [place], [address]. tel:[phone] Referring Provider: Alfredito Vallecillo-Florencio [address], [place], [place], [address]. tel:[phone] [facility], [address], [place], [place], [address], tel:[phone] [facility] Chronic periodontitis, generalized, slight Geena Villarreal. [address], [address], [place], [place], [address]. tel:[phone] Referring Provider: Alfredito Vallecillo-Florencio St[address], [place], [place], [address]. tel:[phone] [facility], [address], [place], [place], [address], [place] tel:[phone] [facility] Encounter for dental exam and cleaning w/o abnormal findings Shilpa Ayoub. [address], [address], [place], [place], [address]. tel:[phone] Referring Provider: Ru Villanueva [address], [place], [place], [address]. tel:[phone] [facility], [address], [place], [place], [address], [place] tel:[phone] [facility] Encounter for dental exam and cleaning w/o abnormal findings Geena Villarreal. [address], [address], [place], [place], [address]. tel:[phone] Referring Provider: Ru Vallecillo [address], [place], [place], [address]. tel:[phone] [facility], [address], [place], [place], [address], tel:[phone] [facility] Encounter for dental exam and cleaning w/o abnormal findings [facility], [address], [place], [place], [address], [place] tel:[phone] [facility] Encounter for dental exam and cleaning w/o abnormal findings [facility], [address], [place], [place], [address], [place] tel:[phone] [facility] Encounter for dental exam and cleaning w/o abnormal findings Geena Villarreal. [address], [place], [place], [address]. tel:[phone] Referring Provider: Phil Seay, [address], [place], [place], [address]. tel:[phone] [facility], [address], [place], [place], [address], [place] tel:[phone] [facility] Encounter for dental exam and cleaning w/o abnormal findings Family History Family Member Diagnosis Age At Onset No information Immunizations Vaccine Date Status Comments No information Payers Payer name Insurance type Covered constitution party ID Authorization(s) No information Social History [...] Date No information Medical Equipment Description Device [place] Device Identifier Effective Dates (start - stop) Status No information Mental Status Date Cognitive Assessment No information Health Concerns Observation Date No information Concern Status Date No information
== END 2019-09-24 18:45 | disposition left against medical advice (07) ==
LOC: ER 15:58
DX: R10.31 Right lower quadrant pain (principal)